=== PATIENT | male | born 1970 | race Caucasian/White ===

== ENCOUNTER 2024-06-21 04:32 | Inpatient (IN) | payer MEDICAID ==
[2024-06-21] VITALS (10 sets, daily range): BP systolic 117–135; BP diastolic 55–79; PULSE 82–98; RESP 15–20; TEMP 98.1; O2SAT 95–98
[~2024-06-21] VITALS: Ht 190.5 cm; Wt 195.6 kg
--- NOTE | 2024-06-21 05:10 | ED.PDOC ---
History of Present Illness HPI Comments 54-year-old male who came to ER for chest pains. Patient is morbidly obese, does have history of alcoholic liver cirrhosis status post abdominal paracentesis. Patient claims that he has already sober. For the past 3 days, patient has been having left-sided chest pressure associated with shortness of breath especially with exertion. Noted worsening abdominal distention and bilateral lower extremity swelling. Patient states that he takes a water pill, but denies ever being diagnosed with congestive heart failure. Persistence of chest pains and shortness of breath patient to come to the ER. Chief Complaint: Chest Pain Time Seen by MD: 05:09 Reviewed Notes: Nurses Notes Allergies: Coded Allergies: NO KNOWN ALLERGIES (Unverified , 07/15/15) Information Source: Patient Mode of Arrival: Ambulatory Severity: Moderate Timing: Days Duration: Since onset Prehospital treatment: None Past Medical History PAST MEDICAL HISTORY: Liver Past Medical History (Other): Morbid obesity Surgical History: Denies all surgeries Family History Family History: Reviewed,noncontributory to illness Social History Smoker: Non-Smoker Alcohol: Sober Drugs: Denies Drug Use Lives In: Home Constitutional: reports: weakness; denies: chills, diaphoresis, fatigue, fever, malaise, sweats, others EENTM: denies: blurred vision, double vision, ear bleeding, ear discharge, ear drainage, ear pain, ear ringing, eye pain, eye redness, hearing loss, mouth pain, mouth swelling, nasal discharge, nose bleeding, nose congestion, nose pain, photophobia, tearing, throat pain, throat swelling, voice changes, others Respiratory: reports: orthopnea, SOB at rest, shortness of breath, SOB with excertion; denies: cough, hemoptysis, stridor, wheezing, others Cardiovascular: reports: chest pain, dizzy spells, edema; denies: diaphoresis, Dyspnea on exertion, irregular heart beat, left arm pain, lightheadedness, palpitations, PND, syncope, others Gastrointestinal: reports: abdomen distended; denies: abdominal pain, blood streaked bowels, constipated, diarrhea, dysphagia, difficulty swallowing, hematemesis, melena, nausea, poor appetite, poor fluid intake, rectal bleeding, rectal pain, vomiting, others Genitourinary: denies: burning, dysuria, flank pain, frequency, hematuria, incontinence, penile discharge, penile sore, pain, testicle pain, testicle swelling, urgency, others Neurological: denies: dizziness, fainting, headache, left sided numbness, left sided weakness, numbness, paresthesia, pre-existing deficit, right sided numbness, right sided weakness, seizure, speech problems, tingling, tremors, weakness, others Musculoskeletal: denies: back pain, gout, joint pain, joint swelling, muscle pain, muscle stiffness, neck pain, others Integumetry: denies: bruises, change in color, change in hair/nails, dryness, laceration, lesions, lumps, rash, wounds, others Allergic/Immunocompromised: denies: Difficulty Healing, Frequent Infections, Hives, Itching, others Hematologic/Lymphatic: denies: anemia, blood clots, easy bleeding, easy bruising, swollen glands, others Endocrine: denies: excessive hunger, excessive sweating, excessive thirst, excessive urination, flushing, intolerance to cold, intolerance to heat, unexplained weight gain, unexplained weight loss, others Psychiatric: denies: anxiety, bipolar disorder, depression, hopeless, panic disorder, schizophrenia, sleepless, suicidal, others Physical Exam General Appearance: No Apparent Distress, Normal HEENT: Normal ENT Inspection, Pharynx Normal, TMs Normal Neck: Full Range of Motion, Non-Tender, Normal, Normal Inspection Respiratory: Chest Non-Tender, Lungs Clear, No Accessory Muscle Use, No Respiratory Distress, Normal Breath Sounds Cardiovascular: No Edema, No JVD, No Murmur, No Gallop, Normal Peripheral Pulses, Regular Rate/Rhythm Breast Exam: Deferred Gastrointestinal: No Organomegaly, Non Tender, No Pulsatile Mass, Normal Bowel Sounds, Soft Genitalia: Deferred Pelvic: Deferred Rectal: Deferred Extremities: No calf tenderness, Normal capillary refill, Normal inspection, Normal range of motion, Non-tender, No pedal edema Musculoskeletal : Apperance: Normal Neurologic: Alert, teamsite developer II-XII nml as Tested, No Motor Deficits, Normal Affect, Normal Mood, No Sensory Deficits Cerebellar Function: Normal Reflexes: Normal Skin: Dry, Normal Color, Warm Lymphatic: No Adenopathy Was a procedure done? Was a procedure done?: No Differential Dx Considerations may include: Anemia, electrolyte imbalance, morbid obesity, congestive heart failure, liver cirrhosis, pneumonia, sepsis, ascites X-Ray, Labs, Meds, VS Vital Signs Date Time Temp Pulse Resp B/P (MAP) Pulse Ox O2 Delivery O2 Flow Rate FiO2 06/21/24 05:23 89 17 137/69 06/21/24 05:11 92 06/21/24 05:00 88 17 137/69 (91) 94 06/21/24 04:43 98.9 99 22 142/72 (95) 98 06/21/24 04:37 99 Lab Test 06/21/24 04:59 06/21/24 04:44 Range/Units White Blood Count 5.2 4.4-10.8 10^3/uL Red Blood Count 2.43 L 4.5-5.90 10^6/uL Hemoglobin 9.7 L 13.5-17.5 g/dL Hematocrit 27.0 L 41.0-53.0 % Mean Corpuscular Volume 111.2 H 80.0-100.0 fL Mean Corpuscular Hemoglobin 39.8 H 28.0-32.0 pg Mean Corpuscular Hemoglobin Concent 35.8 32.0-36.0 g/dL Red Cell Distribution Width 16.9 H 11.8-14.3 % Platelet Count 100 L 140-450 10^3/uL Mean Platelet Volume 6.2 L 6.9-10.8 fL Neutrophils (%) (Auto) 73.3 37.0-80.0 % Lymphocytes (%) (Auto) 10.0 10.0-50.0 % Monocytes (%) (Auto) 11.6 0.0-12.0 % Eosinophils (%) (Auto) 4.0 0.0-7.0 % Basophils (%) (Auto) 1.1 0.0-2.0 % Neutrophils # (Auto) 3.8 1.6-8.6 10 ^3/uL Lymphocytes # (Auto) 0.5 0.4-5.4 10 ^3/uL Monocytes # (Auto) 0.6 0-1.3 10 ^3/uL Eosinophils # (Auto) 0.2 0-0.8 10 ^3/uL Basophils # (Auto) 0.1 0-0.2 10 ^3/uL Nucleated Red Blood Cells 0.1 % Platelet Estimate Pending Prothrombin Time 16.2 H 9.3-11.8 sec Prothrombin Time INR 1.58 H 0.9-1.15 Activated Partial Thromboplast Time 30.8 24.5-34.5 SEC Sodium Level Pending Potassium Level Pending Chloride Level Pending Carbon Dioxide Level Pending Anion Gap Pending Blood Urea Nitrogen Pending Creatinine Pending Glomerular Filtration Rate Calc Pending BUN/Creatinine Ratio Pending Serum Glucose Pending Calcium Level Pending Total Bilirubin Pending Aspartate Amino Transferase (AST) Pending Alanine Aminotransferase (ALT) Pending Alkaline Phosphatase Pending Troponin I High Sensitivity Pending B-Type Natriuretic Peptide Pending Total Protein Pending Albumin Pending POC Glucose 93 70-106 mg/dl Current Medications Medications (Trade) Dose Ordered Sig/Jonatan Route Start Time Stop Time Status Last Admin Morphine Sulfate 4 mg ONCE ONCE IV 06/21/24 05:00 06/21/24 05:01 DC 06/21/24 05:23 Ondansetron HCl (Zofran) 4 mg ONCE ONCE IV 06/21/24 05:00 06/21/24 05:01 DC 06/21/24 05:23 Aspirin 81 mg ONCE ONCE PO 06/21/24 05:00 06/21/24 05:01 DC 06/21/24 05:21 Time of 1ST Reevaluation: 05:04 Reevaluation 1ST: Unchanged Time of 2ND Reevaluation: 05:33 Reevaluation 2ND: Unchanged (h/o EToh cirrhosis, now with concerning chest pain, will admit for supportive care and further workup) Patient Education/Counseling: Diagnosis, Treatment Family Education/Counseling: No Family Present Departure 1 Departure Time of Disposition: 05:34 Impression: Primary Impression: Ascites Additional Impressions: Alcoholic cirrhosis of liver with ascites Acute coronary syndrome Disposition: ADMITTED INPATIENT Admit to: Tele Condition: Guarded Critical Care Note Critical Care Time?: Yes (35 min-critical care time only) Critical care comment: Total critical care time: Approximately 36 minutes Due to a high probability of clinically significant, life threatening deterioration, the patient required my highest level of preparedness to intervene emergently and I personally spent this critical care time directly and personally managing the patient. This critical care time included obtaining a history; examining the patient; pulse oximetry; ordering and review of studies; arranging urgent treatment with development of a management plan; evaluation of patient's response to treatment; frequent reassessment; and, discussions with other providers. Stability Stability form required: No Heart Score Heart Score: Heart Score Response (Comments) Value History Moderate Suspicious 1 EKG Repolarization Disturb 1 Age 45-64 1 Risk Factors >3 or Hx ASHD 2 Troponin Normal limit 0 Total 5 I personally scribed for ALEXANDIRA GALEAS MD ([email or web address]) on 06/21/24 at 05:09. Electronically submitted by Joe Fuentes ([email or web address]). ALEXANDRIA GALEAS MD Jun 21, 2024 05:09
[2024-06-21 05:13] LABS: Eosinophils # (auto) 0.2 10 ^3/uL (0-0.8); Lymphocytes # (auto) 0.5 10 ^3/uL (0.4-5.4); Monocytes # (auto) 0.6 10 ^3/uL (0-1.3); Nucleated Red Blood Cells % 0.1 %; White Blood Cell 5.2 10^3/uL (4.4-10.8)
[2024-06-21 05:15] LABS: Basophils # (auto) 0.1 10 ^3/uL (0-0.2); Basophils % (auto) 1.1 % (0.0-2.0); Hemoglobin 9.7 g/dL (13.5-17.5); Mean Corpuscular Hemoglobin 39.8 pg (28.0-32.0); Mean Corpuscular Hgb Conc. 35.8 g/dL (32.0-36.0); Mean Corpuscular Volume 111.2 fL (80.0-100.0); Monocytes % (auto) 11.6 % (0.0-12.0); Neutrophils # (auto) 3.8 10 ^3/uL (1.6-8.6); Neutrophils % (auto) 73.3 % (37.0-80.0); Platelet Count (auto) 100 10^3/uL (140-450); Red Blood Cells 2.43 10^6/uL (4.5-5.90); Red Cell Distribution Width 16.9 % (11.8-14.3)
[2024-06-21] MEDS: ASPirin 81 mg TAB PO ONE (05:21)
[2024-06-21] MEDS: MORPHINE SULFATE 4 MG/ML SYR/VIAL IV ONE (05:23)
[2024-06-21] MEDS: ONDANSETRON HCL 4 MG/2 ML VIAL IV ONE (05:23)
[2024-06-21 05:29] LABS: INR 1.58 (0.9-1.15); Partial Thromboplastin Time 30.8 SEC (24.5-34.5); Prothrombin Time 16.2 sec (9.3-11.8)
--- NOTE | 2024-06-21 05:30 | DVH ---
CHEST RADIOGRAPH Indication: chest pain Technique: Single frontal view of the chest was obtained Comparison: None IMPRESSION: There are low lung volumes. Elevation of the left hemidiaphragm. Small to moderate right pleural eff usion with moderate pulmonary vascular congestion. Airspace opacity in the right lower lung may repr esent atelectasis or pneumonia. No pneumothorax.
[2024-06-21 05:38] LABS: Anion Gap 10 (5-15); Blood Urea Nitrogen 21 mg/dL (9-23); Carbon Dioxide 21 mmol/L (20-31); Chloride 104 mmol/L (98-107); Glucose 94 mg/dL (74-106); Potassium 3.5 mmol/L (3.5-5.1); Total Protein 5.9 g/dL (5.7-8.2)
[2024-06-21 05:46] LABS: BUN/Creatinine Ratio 17.1 (10.0-20.0)
[2024-06-21 05:51] LABS: Platelet Estimate Decreased
[2024-06-21 05:52] LABS: Macrocytosis Moderate
[2024-06-21 05:56] LABS: Alanine Aminotransferase 41 U/L (7-40); Albumin 2.9 g/dL (3.2-4.8); Alkaline Phosphatase 134 U/L (46-116); Aspartate Aminotransferase 67 U/L (13-40); Calcium 8.5 mg/dL (8.7-10.4); Sodium 135 mmol/L (136-145)
[2024-06-21] MEDS ORDERED: IBUPROFEN 600 MG TAB PO PRN (07:00)
[2024-06-21] MEDS ORDERED: HYDROcodone-ACET 5/325MG TAB PO PRN (07:00)
[2024-06-21] MEDS ORDERED: ONDANSETRON HCL 4 MG/2 ML VIAL IV PRN (07:00)
[2024-06-21] MEDS ORDERED: hydrALAZINE HCL 20 MG/ML VL IV PRN (07:00)
[2024-06-21] MEDS ORDERED: NITROGLYCERIN 0.4 MG SL TAB SL PRN (08:00)
[2024-06-21] MEDS ORDERED: MORPHINE SULFATE INJ 2 MG/ml SYRG IV PRN (08:00)
[2024-06-21] MEDS ORDERED: ALBUTEROL SULF 2.5 MG/0.5ML(0.5%) NEB SOLN NEB PRN (08:15)
[2024-06-21] MEDS ORDERED: IPRATROPIUM BROM 0.5 MG/2.5ML INH SOL NEB PRN (08:15)
--- NOTE | 2024-06-21 08:17 | DVHHP2 ---
History of Present Illness Reason for Visit: Ascites History of Present Illness The patient is a 54-year-old male morbidly obese with past medical history of alcoholic liver cirrhosis status post abdominal paracentesis, presented to [facility] ED with complaint of chest pain. Patient reports for the past 3 days he has been having left-sided chest pressure associated with shortness of breaths with exertion, abdominal distention, bilateral lower extremity swelling, getting worse today that prompted this visit. Patient states he had paracentesis at [facility] about a month ago. Patient was seen and evaluated in the ED, laboratory data shows WBC 5.2, hemoglobin 9.7, hematoc rit 27.0, platelets 100, sodium 135, potassium 3.5, BUN 21, creatinine 1.23, glucose 94, BNP 93.81, calcium 8.5, total bilirubin 15.0, AST 67, ALT 41, troponin 10, albumin 2.9. Chest x-ray revealing small to moderate right pleural effusion with moderate pulmonary vascular congestion; airspace opacity in the right lower lung may represent atelectasis or pneumonia, no pneumothorax. Patient was given breathing treatment, started on IV antibiotic regimen azithromycin, please see medication orders section in the computer. On my assessment, patient denies chest pain, no headache, no dizziness, no diaphoresis, no abdominal pain, no diarrhea, no nausea, no vomiting, no fever, no chills. Patient was admitted for further evaluation and medical management. Past Medical History Alcoholic liver cirrhosis, Morbid obesity Past Surgical History Paracentesis Family History Reviewed, noncontributory to the management of this case. Past Social History Patient lives at home, sober alcohol, denies smoking or illicit drugs abuse. Review of Systems Constitutional: Yes: Weakness; No: Fever, Chills, Sweats, Malaise, Other Eyes: No: Pain, Vision change, Conjunctivae inflammation, Eyelid inflammation, Other, Redness ENT: No: Ear pain, Ear discharge, Nose pain, Nose discharge, Nose congestion, Mouth pain, Mouth swelling, Throat pain, Throat swelling, Other Respiratory: Shortness of breath, SOB with excertion, Other (SOB at rest); No: Cough, Dry, Wheezing, Hemoptysis, Pleuritic Pain, Sputum, Wheezing Cardiovascular: Chest Pain, Orthopnea, Edema, Other (Dizzy spells); No: Palpit ations, Paroxysmal Noc. Dyspnea, Lt Headedness Gastrointestinal: Other (Distended abdomen); No: Nausea, Vomiting, Abdominal Pain, Diarrhea, Constipation, Melena, Hematochezia Genitourinary: No Dysuria, No Frequency, No Incontinence, No Hematuria, No Retention, No Other Musculoskeletal: No: other, neck pain, shoulder pain, arm pain, back pain, hand pain, leg pain, foot pain Skin: No: Rash, Lesions, Jaundice, Bruising, Other Neurological: No: Weakness, Numbness, Incoordination, Change in speech, Confusion, Seizures, Other Allergies: Coded Allergies: NO KNOWN ALLERGIES (Unverified , 07/15/15) Medications Current Medications Medications Dose Ordered Sig/Jonatan Route Start Time Stop Time Status Last Admin Dose Admin Ibuprofen 600 mg Q6HP PRN PO 06/21/24 07:00 Levothyroxine Sodium 75 mcg QAM@0600 PO 06/22/24 06:00 Azithromycin 250 ml @ 125 mls/hr DAILY IV 06/22/24 10:00 Famotidine 20 mg DAILY IV 06/21/24 10:00 Hydralazine HCl 10 mg Q6HP PRN IV 06/21/24 07:00 Lactulose 30 ml BID PO 06/21/24 10:00 Sodium Chloride 10 ml Q8HR IV 06/21/24 14:00 Acetaminophen/ Hydrocodone Bitart 1 tab Q4HP PRN PO 06/21/24 07:00 Ondansetron HCl 4 mg Q4HP PRN IV 06/21/24 07:00 Tamsulosin HCl 0.4 mg QPM PO 06/21/24 18:00 Spironolactone 100 mg DAILY PO 06/21/24 07:45 UNV Hydromorphone HCl 1 mg Q4HPRN PRN IV 06/21/24 08:00 UNV Exam Vital Signs Vital Signs Date Time Temp Pulse Resp B/P (MAP) Pulse Ox O2 Delivery O2 Flow Rate FiO2 06/21/24 05:53 89 14 137/69 06/21/24 05:39 97 Room Air* 0 21 06/21/24 04:43 98.9 General Appearance: Alert, Oriented X3, Cooperative, No acute distress HEENT: Atraumatic, PERRLA, EOMI, Mucous membr. moist/pink Respiratory: Normal air movement, Other (Diminished breath sounds) Cardiovascular: Regular rate, Normal S1, Normal S2, No murmurs Abdominal: Normal bowel sounds, Soft, No tenderness, No hepatospenomegaly, No masses, Other (Distended abdomen) Extremities: No clubbing, No cyanosis, No edema, Normal pulses, No tenderness/swelling Skin: No rashes, No breakdown, No significant lesion Neuro: Normal speech, Normal tone, Sensation intact, Cranial nerves 3-12 NL, Reflexes 2+, Other (Generalized weakness) Psych/Mental Status: Mental status NL, Mood NL Labs/Xrays Labs Test 06/21/24 05:52 06/21/24 04:59 06/21/24 04:44 Range/Units Troponin I High Sensitivity 10 </=54 ng/L White Blood Count 5.2 4.4-10.8 10^3/uL Red Blood Count 2.43 L 4.5-5.90 10^6/uL Hemoglobin 9.7 L 13.5-17.5 g/dL Hematocrit 27.0 L 41.0-53.0 % Mean Corpuscular Volume 111.2 H 80.0-100.0 fL Mean Corpuscular Hemoglobin 39.8 H 28.0-32.0 pg Mean Corpuscular Hemoglobin Concent 35.8 32.0-36.0 g/dL Red Cell Distribution Width 16.9 H 11.8-14.3 % Platelet Count 100 L 140-450 10^3/uL Mean Platelet Volume 6.2 L 6.9-10.8 fL Neutrophils (%) (Auto) 73.3 37.0-80.0 % Lymphocytes (%) (Auto) 10.0 10.0-50.0 % Monocytes (%) (Auto) 11.6 0.0-12.0 % Eosinophils (%) (Auto) 4.0 0.0-7.0 % Basophils (%) (Auto) 1.1 0.0-2.0 % Neutrophils # (Auto) 3.8 1.6-8.6 10 ^3/uL Lymphocytes # (Auto) 0.5 0.4-5.4 10 ^3/uL Monocytes # (Auto) 0.6 0-1.3 10 ^3/uL Eosinophils # (Auto) 0.2 0-0.8 10 ^3/uL Basophils # (Auto) 0.1 0-0.2 10 ^3/uL Nucleated Red Blood Cells 0.1 % Platelet Estimate Decreased Macrocytosis Moderate Prothrombin Time 16.2 H 9.3-11.8 sec Prothrombin Time INR 1.58 H 0.9-1.15 Activated Partial Thromboplast Time 30.8 24.5-34.5 SEC Sodium Level 135 L 136-145 mmol/L Potassium Level 3.5 3.5-5.1 mmol/L Chloride Level 104 98-107 mmol/L Carbon Dioxide Level 21 20-31 mmol/L Anion Gap 10 5-15 Blood Urea Nitrogen 21 9-23 mg/dL Creatinine 1.23 0.700-1.30 mg/dL Glomerular Filtration Rate Calc 70 >90 mL/min BUN/Creatinine Ratio 17.1 10.0-20.0 Serum Glucose 94 74-106 mg/dL Calcium Level 8.5 L 8.7-10.4 mg/dL Total Bilirubin 15.0 H 0.2-1.0 mg/dL Aspartate Amino Transferase (AST) 67 H 13-40 U/L Alanine Aminotransferase (ALT) 41 H 7-40 U/L Alkaline Phosphatase 134 H 46-116 U/L B-Type Natriuretic Peptide 93.81 0-100 pg/mL Total Protein 5.9 5.7-8.2 g/dL Albumin 2.9 L 3.2-4.8 g/dL POC Glucose 93 70-106 mg/dl PATIENT: ANA FLAHERTY ACCT: [id number] UNIT: [id number] : 1970 LOC: ER ROOM / BED: / AGE / SEX: 54 / M ADM STATUS: REG ER SERVICE [id number] ORDERING PHYSICIAN: ALEXANDRIA GALEAS MD PROCEDURE(s): CXRP - CHEST PORTABLE REASON: chest pain ORDER NUMBER(s): [id number], ACCESSION NUMBER(s): [id number] CHEST RADIOGRAPH Indication: chest pain Technique: Single frontal view of the chest was obtained Comparison: None IMPRESSION: There are low lung volumes. Elevation of the left hemidiaphragm. Small to moderate right pleural effusion with moderate pulmonary vascular congestion. Airspace opacity in the right lower lung may represent atelectasis or pneumonia. No pneumothorax. Assessment/Plan Assessment/Plan Ascites Elevated liver enzymes Alcoholic cirrhosis of liver with ascites Morbid obesity Acute coronary syndrome Electrolyte imbalance Anemia of chronic disease Pneumonia, unspecified organisms Plan 1. Admit to telemetry unit 2. Breathing treatment 3. Pain control management 4. IV antibiotic management 5. Management of fluids and electrolytes 6. Consultation for hospitalist/GI 7. Diagnostic test chest x-ray 8. DVT prophylaxis on SCDs 9. Repeat labs CBC, CMP in a.m. 10. Home medication reviewed and reconciled 11. Continue with current medical management 12. Treatment plan discussed with patient and RN. Patient verbalized dhaval melendez. Plan discussed with: Patient, Other (RN) My Orders Orders - MARIYA JARRETT DNP Procedure Category Date Status Time * Gi Dvh Circular Head Saw Operator CONS 06/21/24 Transmitted 06:56 Complete Blood Count LAB 06/21/24 Logged 06:56 Comprehensive LAB 06/21/24 Logged Metabolic Panel 06:56 Ibuprofen Tablet PHA 06/21/24 In Process (Motrin Tablet) 07:00 Levothyroxine Tablet PHA 06/22/24 In Process (Synthroid Tablet) 06:00 Thyroid Stimulating LAB 06/21/24 In Process Hormone 06:56 Azithromycin 500mg/ PHA 06/21/24 In Process 250ml (Zithromax 50 07:00 Type And Screen BBK 06/21/24 Logged 06:56 Famotidine Injection PHA 06/21/24 In Process (Pepcid Injection) 10:00 Hydralazine Injection PHA 06/21/24 In Process (Apresoline Inject 07:00 Lactulose Oral PHA 06/21/24 In Process 10:00 Allergies XAVIER 06/21/24 In Process 06:56 Code Status CODE 06/21/24 Transmitted 06:56 Sodium Chloride Lock PHA 06/21/24 In Process (Saline Lock Ns) 14:00 Oxygen Per Hour RT 06/21/24 Transmitted 06:56 Hydrocodone-Acet PHA 06/21/24 In Process 5/325mg Tab ([place] 07:00 Ondansetron Hcl PHA 06/21/24 In Process (Zofran) 07:00 Complete Blood Count LAB 06/22/24 Verified 04:00 Comprehensive LAB 06/22/24 Verified Metabolic Panel 04:00 Cardiac DIET 06/21/24 Transmitted Diet-2gna,Lofat,Lochol Breakfast Condition: Serious XAVIER 06/21/24 In Process 06:56 Bedrest With Bathroom XAVIER 06/21/24 In Process Privileg 06:56 Sequential XAVIER 06/21/24 In Process Compression Device Tamsulosin [facility] 06/21/24 In Process Hydrochloride (Flomax) 18:00 Azithromycin 500mg/ PHA 06/22/24 In Process 250ml (Zithromax 50 10:00 Paracentesis US 06/21/24 Logged 07:43 Ammonia LAB 06/21/24 Logged 07:44 Spironolactone PHA 06/21/24 Logged (Aldactone) 07:45 Hydromorphone [facility] 06/21/24 Logged Injection (Dilaudid 08:00 Admit ADMIT 06/21/24 Verified 07:52 Nitroglycerin [facility] 06/21/24 Verified Sublingual (Ntrostat 08:00 Morphine Sulfate [facility] 06/21/24 Verified Injection 08:00 Notify Of Changes [facility] 06/21/24 Verified From Base 07:52 Title Specialist For [facility] 06/21/24 Verified 24 Hours 07:52 Emergency Dysrhythmia [facility] 06/21/24 Verified Protocol 07:52 Rhythm Strips Once [facility] 06/21/24 Verified Every Shift 07:52 Oxygen By Nasal RT 06/21/24 Verified Cannula 07:52 Problem List: (1) Ascites (2) Elevated liver enzymes (3) Pneumonia, unspecified organism (4) Morbid obesity (5) Anemia of chronic disease (6) Electrolyte imbalance (7) Acute coronary syndrome (8) Alcoholic cirrhosis of liver with ascites Date of Service: Jun 21, 2024 Billing Provider: MARIYA JARRETT DNP Common Visit Codes: [id number] INP/OBS CARE (HIGH) MARIYA JARRETT DNP Jun 21, 2024 08:17
[2024-06-21 08:56] LABS: Anion Gap 8 (5-15); Blood Urea Nitrogen 22 mg/dL (9-23); Calcium 8.7 mg/dL (8.7-10.4); Carbon Dioxide 23 mmol/L (20-31); Chloride 103 mmol/L (98-107); Glucose 92 mg/dL (74-106); Potassium 3.8 mmol/L (3.5-5.1); Total Protein 5.9 g/dL (5.7-8.2)
[2024-06-21 09:07] LABS: Alanine Aminotransferase 41 U/L (7-40); Albumin 2.7 g/dL (3.2-4.8); Alkaline Phosphatase 125 U/L (46-116); Aspartate Aminotransferase 68 U/L (13-40); Bilirubin, Total 15.3 mg/dL (0.2-1.0); Sodium 134 mmol/L (136-145)
[2024-06-21] MEDS: SPIRONOLACTONE 25 MG TAB PO SCH (09:09)
[2024-06-21] MEDS: AZITHROMYCIN 500MG/ 250ML 250 ML IV ONE (09:09)
[2024-06-21] MEDS: LACTULOSE 20Gm/30ML SOLN PO SCH (09:09)
[2024-06-21 09:10] LABS: BUN/Creatinine Ratio 17.3 (10.0-20.0)
[2024-06-21] MEDS: SODIUM CHLOR 0.9% PF (SALINE LOCK) 10ML VIAL/SYR IV SCH (09:10)
[2024-06-21] MEDS: FAMOTIDINE (10MG/ML) 2ML VL IV SCH (09:10)
--- NOTE | 2024-06-21 09:31 | DVH ---
INDICATION: EVAL ASCITES TECHNIQUE: Multiple real-time sonographic images of the abdomen were obtained. COMPARISON: None FINDINGS: Small volume ascites seen in all 4 quadrants. IMPRESSION: 1. Ascites in all 4 quadrants.
[2024-06-21] MEDS ORDERED: SPIRONOLACTONE 25 MG TAB PO SCH (10:00)
[2024-06-21] MEDS ORDERED: SPIR100T4 PO (11:28)
[2024-06-21] MEDS ORDERED: FURO40TA4 PO (11:28)
[2024-06-21] MEDS: HYDROmorphone HCL 2 MG/ML VL/or syr IV PRN (15:35)
[2024-06-21] MEDS: TAMSULOSIN HYDROCHLORIDE 0.4 MG CAP PO SCH (17:33)
--- NOTE | 2024-06-21 18:00 | DVHINCON2 ---
GI Consult Consult Note Date of Consultation: 06/21/2024 Chief Complaint: Ascites and shortness of breath Referring Physician:Rosanna History of present illness : Patient is a 54-year-old male with a history of alcoholic cirrhosis, hypothyroidism, BPH, with decompensations including thrombocytopenia and ascites, admitted with complaints of shortness of breath and ascites, recent paracentesis, on diuretics and [facility]. Patient has significant lower extremity edema to the knees bilaterally. Patient denies any recent EtOH abuse. States that his last alcohol was more than seven months ago. Patient denies any fevers or chills. He has significant shortness of breath with any exertion. Patient denies any change in diet. Patient states that he needs to go home to take care of his four dogs. Patient denies any cardiac or pulmonary history. Patient was found to have pleural effusion on imaging. Imaging of the abdomen shows small amount of ascites in all four quadrants. Past Medical History: As above Past Surgical History: Denies Current Medications Medications (Trade) Dose Ordered Sig/Jonatan Route Start Time Stop Time Status Last Admin Dose Admin Ibuprofen (Motrin Tablet) 600 mg Q6HP PRN PO 06/21/24 07:00 Levothyroxine Sodium (Synthroid Tablet) 75 mcg QAM@0600 PO 06/22/24 06:00 Azithromycin 250 ml @ 125 mls/hr DAILY IV 06/22/24 10:00 Famotidine (Pepcid Injection) 20 mg DAILY IV 06/21/24 10:00 06/21/24 09:10 20 MG Hydralazine HCl (Apresoline Injection) 10 mg Q6HP PRN IV 06/21/24 07:00 Lactulose 30 ml BID PO 06/21/24 10:00 06/21/24 09:09 30 ML Sodium Chloride (Saline Lock Ns) 10 ml Q8HR IV 06/21/24 14:00 06/21/24 09:10 10 ML Acetaminophen/ Hydrocodone Bitart ([place] 5/325MG Tab) 1 tab Q4HP PRN PO 06/21/24 07:00 Ondansetron HCl (Zofran) 4 mg Q4HP PRN IV 06/21/24 07:00 Tamsulosin HCl (Flomax) 0.4 mg QPM PO 06/21/24 18:00 06/21/24 17:33 0.4 MG Hydromorphone HCl (Dilaudid Injection) 1 mg Q4HPRN PRN IV 06/21/24 08:00 06/21/24 15:35 1 MG Nitroglycerin (Ntrostat Sublingual) 0.4 mg Q5MINP PRN SL 06/21/24 08:00 Morphine Sulfate 2 mg Q30M PRN IV 06/21/24 08:00 Spironolactone (Aldactone) 100 mg DAILY PO 06/22/24 10:00 Social History: History of alcohol abuse, no drugs or tobacco use Family History: No gastrointestinal or liver diseases or malignancies Review of Systems: Constitutional: Has had weight gain no fevers or chills HEENT: No visual changes or hearing loss Heart: No chest pain, palpitations, Lung: Shortness of breath no cough or wheeze Abdomen: see HPI : n no dysuria or hematuria, BPH Musculoskeletal: No fractures, arthralgias or myalgias Neurological: no seizure, or stroke Pysch: no depression, no anxiety Endocrine: No diabetes but has hypothyroid Heme: Anemia but no history of malignancy Derm: no rash, no jaundice Objective: Vital Signs Date Time Temp Pulse Resp B/P (MAP) Pulse Ox O2 Delivery O2 Flow Rate FiO2 06/21/24 17:00 98.1 95 18 135/79 (97) 95 98.1 06/21/24 10:50 Room Air* 0 21 Physical exam: General: NAD, AAOX3 HEENT: PERRL icterus is present normal Neck: Supple no lymphadenopathy Heart: RRR Abdomen: Morbidly obese and distended Extremities: Edema to the knees bilaterally Neurological: CN II-XII intact, sensation intact in all extremities, 5+ strength in all extremities, no asterixis Skin: Chronic skin changes lower extremity Labs: Hemoglobin 9.7 Platelets 100 k INR 1.58 Bilirubin 15 Imaging: Essential small volume of ascites in all four quadrant Impression: Cirrhosis Ascites Hyperbilirubinemia Transaminitis Coagulopathy Edema History of alcohol abuse Anemia and thrombocytopenia Patient's symptoms may be secondary to cirrhosis versus right-sided heart failure. Recommend cardiac workup. Recommendations: 1. Follow labs 2. Paracentesis when available 3. Continue diuretics 4. Cardiac workup 5. Continue avoid EtOH 6. Low-salt diet, avoid raw seafood, less than 2 L fluid intake Check hepatitis vaccination status and vaccinate for hepatitis a and B 7. Mediterranean diet for weight loss 8. I will follow Plan: - Pt will be scheduled for an EGD and colonoscopy. Pt was informed of the risks (bleeding, infection, perforation, reaction to sedation medications and cardiopulmonary arrest) and benefit and is agreeable to undergo the procedures. Date of Service: Jun 21, 2024 Billing Provider: ADINA GARCIA MD Common Visit Codes: 50616-DMIMEST INP/OBS CARE (HIGH) Consultation Codes: 44736-OPHLWYYAS CONSULT <60MIN ADINA GARCIA MD Jun 21, 2024 18:00
--- NOTE | 2024-06-21 20:47 | DVHNC2 ---
Procedure - Paracentesis Procedure Note Paracentesis Procedure Note INDICATION: Ascites PROCEDURE PLUMBER ASSISTANT: Dr Kurtis Arredondo Ultrasound used to nereida location: Yes CONSENT: Consent was obtained from patient prior to the procedure. Indications, risks, and benefits were explained at length. Time out time: 2000 Patient medications and allergies reviewed. The risks and benefits of the procedure and the sedation options and risk were discussed with the patient's healthcare proxy. All questions were answered and informed consent was obtained. Patient identification and proposed procedure were verified prior to the procedure by the physician, and a nurse in the patient's room. The heart rate, respiratory rate, oxygen saturations, blood pressure, adequacy of pulmonary ventilation, and response to care were monitored throughout the procedure. The physical status of the patient was reassessed after the procedure. PROCEDURE SUMMARY: A time-out was performed. My hands were washed immediately prior to the procedure. I wore a surgical cap, mask with protective eyewear, sterile gown and sterile gloves throughout the procedure. The area was cleansed and draped in usual sterile fashion using chlorhexidine scrub. Anesthesia was achieved with 1% lidocaine. The right lower quadrant of the abdomen was prepped and draped in a sterile fashion using chlorhexidine scrub. 1% lidocaine was used to numb the skin, soft tissue and peritoneum. The paracentesis catheter was inserted and advanced with negative pressure until _ colored fluid was aspirated. Approximately 60 mL of ascitic fluid was collected and sent for laboratory analysis. The catheter was then connected to the vaccutainer and 3.6 liters of additional ascitic fluid were drained. The catheter was removed and no leaking was noted. A band aid was placed over the puncture wound. The patient tolerated the procedure well without any immediate complications. Estimated blood loss was less than 5 mL. CPT 98914 KURTIS ARREDONDO MD Jun 21, 2024 20:47
--- NOTE | 2024-06-21 20:48 | DVHINCON2 ---
Date of service: Jun 21, 2024 Referring Physician GREG Marte Reason for Consultation Ascites History of Present Illness 54-year-old man history of morbid obesity, alcoholic liver cirrhosis status post paracentesis who presented with a chief complaint of chest pain. He has been having left-sided chest pain for the last three days. He notes shortness of breath with exertion and abdominal distention. He also notes bilateral lower extremity swelling. Pulmonary consultation is called for evaluation of shortness of breath and evaluation for paracentesis given patient's history of ascites. Review of systems: 14 point review of systems is negative unless otherwise noted above. Past medical history: Alcoholic liver cirrhosis, morbid obesity Past surgical history: Paracentesis Medications: Reviewed Allergies: No known drug allergies. Family history: No family history of premature CAD. No family history of lung disease. Social history: Sober alcohol. Denies smoking or illicit drug use. Lives at home. Family History: FH: breast cancer G8 MOTHER FH: heart attack G8 MOTHER Allergies: Coded Allergies: NO KNOWN ALLERGIES (Unverified , 07/15/15) Home Meds Reported Medications Spironolactone (Spironolactone) 100 Mg Tab, 1 TAB PO DAILY for FOR LIVER 06/21/24 Furosemide (Furosemide) 40 Mg Tab, 1 TAB PO DAILY for WATER RETENTION 06/21/24 Current Medications Current Medications Medications (Trade) Dose Ordered Sig/Jonatan Route PRN Reason Start Time Stop Time Status Last Admin Ibuprofen (Motrin Tablet) 600 mg Q6HP PRN PO PAIN SCALE 1-3 OR TEMP>100.4 06/21/24 07:00 Spironolactone (Aldactone) 50 mg DAILY PO 06/21/24 10:00 06/21/24 07:47 DC Levothyroxine Sodium (Synthroid Tablet) 75 mcg QAM@0600 PO 06/22/24 06:00 Azithromycin 250 ml @ 125 mls/hr DAILY IV 06/22/24 10:00 Famotidine (Pepcid Injection) 20 mg DAILY IV 06/21/24 10:00 06/21/24 09:10 Hydralazine HCl (Apresoline Injection) 10 mg Q6HP PRN IV SBP>150 06/21/24 07:00 Lactulose 30 ml BID PO 06/21/24 10:00 06/21/24 09:09 Sodium Chloride (Saline Lock Ns) 10 ml Q8HR IV 06/21/24 14:00 06/21/24 09:10 Acetaminophen/ Hydrocodone Bitart ([place] 5/325MG Tab) 1 tab Q4HP PRN PO MODERATE PAIN (4-6 PAIN SCALE) 06/21/24 07:00 Ondansetron HCl (Zofran) 4 mg Q4HP PRN IV NAUSEA / VOMITING 06/21/24 07:00 Tamsulosin HCl (Flomax) 0.4 mg QPM PO 06/21/24 18:00 06/21/24 17:33 Spironolactone (Aldactone) 100 mg DAILY PO 06/21/24 07:45 06/21/24 09:13 DC 06/21/24 09:09 Hydromorphone HCl (Dilaudid Injection) 1 mg Q4HPRN PRN IV SEVERE PAIN (7-10 PAIN SCALE) 06/21/24 08:00 06/21/24 15:35 Nitroglycerin (Ntrostat Sublingual) 0.4 mg Q5MINP PRN SL FOR CHEST PAIN 06/21/24 08:00 Morphine Sulfate 2 mg Q30M PRN IV FOR CHEST PAIN 06/21/24 08:00 Albuterol (Ventolin Medneb) 2.5 mg Q4HPRN PRN NEB SHORTNESS OF BREATH 06/21/24 08:15 06/21/24 08:57 DC Ipratropium [place] (Atrovent Medneb) 0.5 mg Q4HPRN PRN NEB SHORTNESS OF BREATH 06/21/24 08:15 06/21/24 08:57 DC Spironolactone (Aldactone) 100 mg DAILY PO 06/22/24 10:00 Furosemide (Lasix Tablet) 40 mg DAILY PO 06/22/24 10:00 Vital Signs Vital Signs Date Time Temp Pulse Resp B/P (MAP) Pulse Ox O2 Delivery O2 Flow Rate FiO2 06/21/24 17:00 98.1 95 18 135/79 (97) 95 98.1 06/21/24 10:50 Room Air* 0 21 Physical Exam Gen.: Patient lying in bed in no apparent distress. On supplemental oxygen. Head: Normocephalic, atraumatic Eyes: EOMI/PERRLA. Ears: Normal hearing. Normal anatomy. Neck/trachea: Trachea midline, supple. Nose: Normal external anatomy. Mouth: Moist mucous membranes. Chest: Decreased air entry bilaterally. No wheezing or rhonchi. Cardio vascular: Positive S1, positive S2. Regular rate and rhythm. Abdomen: Anasarca. Positive bowel sounds in all 4 quadrants. Soft, non- tender, distended. : Deferred. Rectal: Deferred Skin: Warm, dry. Intact. Extremities: 2+ radial pulses bilaterally. 3+ lower extremity edema. Neuro: Awake, alert, oriented x3. No gross motor or sensory deficits. Cranial nerves II through XII intact. Gait not assessed. Labs/Diagnostic Data Labs Test 06/21/24 08:00 06/21/24 05:52 06/21/24 04:59 06/21/24 04:44 Range/Units Sodium Level 134 L 136-145 mmol/L Potassium Level 3.8 3.5-5.1 mmol/L Chloride Level 103 98-107 mmol/L Carbon Dioxide Level 23 20-31 mmol/L Anion Gap 8 5-15 Blood Urea Nitrogen 22 9-23 mg/dL Creatinine 1.27 0.700-1.30 mg/dL Glomerular Filtration Rate Calc 67 >90 mL/min BUN/Creatinine Ratio 17.3 10.0-20.0 Serum Glucose 92 74-106 mg/dL Calcium Level 8.7 8.7-10.4 mg/dL Total Bilirubin 15.3 H 0.2-1.0 mg/dL Aspartate Amino Transferase (AST) 68 H 13-40 U/L Alanine Aminotransferase (ALT) 41 H 7-40 U/L Alkaline Phosphatase 125 H 46-116 U/L Ammonia < 10 L 11-32 umol/L Total Protein 5.9 5.7-8.2 g/dL Albumin 2.7 L 3.2-4.8 g/dL Troponin I High Sensitivity 10 </=54 ng/L Thyroid Stimulating Hormone (TSH) 8.65 H 0.55-4.78 uIU/mL White Blood Count 5.2 4.4-10.8 10^3/uL Red Blood Count 2.43 L 4.5-5.90 10^6/uL Hemoglobin 9.7 L 13.5-17.5 g/dL Hematocrit 27.0 L 41.0-53.0 % Mean Corpuscular Volume 111.2 H 80.0-100.0 fL Mean Corpuscular Hemoglobin 39.8 H 28.0-32.0 pg Mean Corpuscular Hemoglobin Concent 35.8 32.0-36.0 g/dL Red Cell Distribution Width 16.9 H 11.8-14.3 % Platelet Count 100 L 140-450 10^3/uL Mean Platelet Volume 6.2 L 6.9-10.8 fL Neutrophils (%) (Auto) 73.3 37.0-80.0 % Lymphocytes (%) (Auto) 10.0 10.0-50.0 % Monocytes (%) (Auto) 11.6 0.0-12.0 % Eosinophils (%) (Auto) 4.0 0.0-7.0 % Basophils (%) (Auto) 1.1 0.0-2.0 % Neutrophils # (Auto) 3.8 1.6-8.6 10 ^3/uL Lymphocytes # (Auto) 0.5 0.4-5.4 10 ^3/uL Monocytes # (Auto) 0.6 0-1.3 10 ^3/uL Eosinophils # (Auto) 0.2 0-0.8 10 ^3/uL Basophils # (Auto) 0.1 0-0.2 10 ^3/uL Nucleated Red Blood Cells 0.1 % Platelet Estimate Decreased Macrocytosis Moderate Prothrombin Time 16.2 H 9.3-11.8 sec Prothrombin Time INR 1.58 H 0.9-1.15 Activated Partial Thromboplast Time 30.8 24.5-34.5 SEC B-Type Natriuretic Peptide 93.81 0-100 pg/mL POC Glucose 93 70-106 mg/dl Assessment Impression: Shortness of breath Ascites Elevated liver enzymes Alcoholic cirrhosis of the liver with ascites Morbid obesity with a BMI of 54.3 Anemia of chronic disease Pneumonia Likely Gram-negative Atelectasis Plan: Chest x-ray imaging report reviewed. Elevation of the left hemidiaphragm. [id number] right pleural effusion with moderate pulmonary vascular congestion. Drained 3.7 L from the abdominal space. Yellow ascitic fluid. Sent for cultures and cytology. See separate procedure note for full details. On room air Complete antibiotic course. Diuresis euvolemia. Monitor ins and outs. Monitor electrolytes. Supplement as necessary. Monitor renal function. Lactulose twice daily. Titrate to achieve four bowel movements daily. GI prophylaxis-Pepcid DVT prophylaxis-SCDs Condition: Critical Prognosis: Poor given multiple comorbidities. Rest of plan per hospitalist and other consultants. A total of 36 minutes of critical care time was spent reviewing the patient record, examining the patient, making a diagnostic and therapeutic plan, discussing this plan with the medical personnel, following up on diagnostic studies and following the patient for clinical stability excluding any and all procedures. At least 50% of this time was spent in direct, [id number] contact. Thank you GREG Marte for allowing me to participate in this patient's care. Further recommendations will depend on patient's clinical course. Please do not hesitate to contact me if you have any questions or concerns. This medical document was created using an electronic medical record system with [employer] dictation system. Although this document has been carefully reviewed, there may still be some phonetic and typographical errors. These areas are purely typographical due to imperfections of the software programs, and do not reflect any compromise in the patient's medical care. Plan discussed with: Patient, Other (LÓPEZ Staples MD/ACCOUNTING ADVISORY SERVICES MANAGER) KURTIS ALEMAN MD Jun 21, 2024 20:47
[2024-06-21] MEDS: FUROSEMIDE 20 MG/2 ML VIAL IV ONE (21:25)
[2024-06-21 22:41] LABS: Body Fluid Red Blood Cells 173 CUMM (0-2000); Body Fluid White Blood Cells 764 CUMM (0-200)
[2024-06-21 22:42] LABS: Body Fluid Polymorphonuclear 75 % (0-25)
[2024-06-22] MEDS ORDERED: LEVOTHYROXINE SODIUM 25 MCG TAB PO SCH (06:00)
[2024-06-22] MEDS ORDERED: AZITHROMYCIN 500MG/ 250ML 250 ML IV SCH (10:00)
[2024-06-22] MEDS ORDERED: FUROSEMIDE 20 MG TAB PO SCH (10:00)
[2024-06-22] MEDS ORDERED: SPIRONOLACTONE 25 MG TAB PO SCH (10:00)
--- NOTE | 2024-06-24 12:26 | ECG ---
[facility] Test Date: 2024-06-21 Test Time: 04:37:36 Pat Name: ANA FLAHERTY Department: ER Room: 0212T A Gender: M Para Educator: : 1970 Requested By: ALEXANDRIA GALEAS Order Number: [id number] Reading MD: Alejandro Gallo Measurements Intervals [place] Rate: 99 P: 53 WA: 158 QRS: 13 QRSD: 97 T: 89 QT: 353 QTc: 453 Interpretive Statements Sinus rhythm Low voltage, precordial leads Abnormal R-wave progression, early transition Nonspecific T abnormalities, lateral leads Electronically Signed On 06-26-2024 16:06:53 PST by Alejandro Gallo Please click the below link to view image of tracing.
[2024-06-25 13:06] LABS: Protein, Body Fluid 0.8 g/dL (.)
== END 2024-06-21 23:12 | disposition left against medical advice (07) | DRG 280 ==
LOC: ER 04:32 → TELE 07:52 → TELE-CENTR 09:51
PROVIDERS: ADMIT Nurse Practitioner Family; ATTEND Nurse Practitioner Family
PROC: 0W9G3ZZ Drainage of Peritoneal Cavity, Percutaneous Approach (ICD-10-PCS; principal; 2024-06-21)
DX: K70.31 Alcoholic cirrhosis of liver with ascites (principal); J15.69 Pneumonia due to other Gram-negative bacteria; D68.9 Coagulation defect, unspecified; D69.6 Thrombocytopenia, unspecified; I24.9 Acute ischemic heart disease, unspecified; D63.8 Anemia in other chronic diseases classified elsewhere; J90 Pleural effusion, not elsewhere classified; Z68.43 Body mass index [BMI] 50.0-59.9, adult; E66.01 Morbid (severe) obesity due to excess calories; E03.9 Hypothyroidism, unspecified; N40.0 Benign prostatic hyperplasia without lower urinary tract symptoms; F10.10 Alcohol abuse, uncomplicated; Y90.9 Presence of alcohol in blood, level not specified; Z80.3 Family history of malignant neoplasm of breast; Z82.49 Family history of ischemic heart disease and other diseases of the circulatory system; Z79.899 Other long term (current) drug therapy
CPT/HCPCS: 49083; 93005; 96365; 96375; 99291; G0378

== ENCOUNTER 2024-06-28 00:58 | Inpatient (IN) | payer MEDICAID ==
[2024-06-28] VITALS (54 sets, daily range): BP systolic 46–175; BP diastolic 14–106; PULSE 89–106; RESP 13–30; TEMP 97.3–98.4; O2SAT 77–99
[~2024-06-28] VITALS: Ht 188 cm; Wt 191.0 kg
[~2024-06-28 00:58] MED LIST: FURO40TA4 PO; SPIR100T4 PO
[2024-06-28] MEDS: NITROGLYCERIN 0.4 MG SL TAB SL ONE (01:47)
--- NOTE | 2024-06-28 01:47 | DVH ---
CHEST RADIOGRAPH Indication: Shortness of breath Technique: Single frontal view of the chest was obtained COMPARISON: XY CHEST PORTABLE on DOS: 06/21/24 FINDINGS: Lines and Tubes: None Lungs: Moderate interstitial pulmonary edema. Pleura: Trace right effusion. No pneumothorax. Cardiomediastinal contours: Cardiomegaly. Bones: Unremarkable IMPRESSION: 1. Moderate interstitial pulmonary edema. 2. Trace right effusion
[2024-06-28 01:52] LABS: Anion Gap 11 (5-15); Carbon Dioxide 20 mmol/L (20-31); Chloride 100 mmol/L (98-107); Glucose 95 mg/dL (74-106); Potassium 4.1 mmol/L (3.5-5.1)
[2024-06-28 01:53] LABS: Alanine Aminotransferase 85 U/L (7-40); Albumin 2.5 g/dL (3.2-4.8); Alkaline Phosphatase 135 U/L (46-116); Aspartate Aminotransferase 162 U/L (13-40); Basophils # (auto) 0 10 ^3/uL (0-0.2); Basophils % (auto) 0.7 % (0.0-2.0); Bilirubin, Total 16.8 mg/dL (0.2-1.0); Blood Urea Nitrogen 33 mg/dL (9-23); Calcium 8.1 mg/dL (8.7-10.4); Eosinophils # (auto) 0.1 10 ^3/uL (0-0.8); Eosinophils % (auto) 4.9 % (0.0-7.0); Hematocrit 27.5 % (41.0-53.0); Hemoglobin 9.7 g/dL (13.5-17.5); Lipase 80 U/L (12-53); Lymphocytes # (auto) 0.3 10 ^3/uL (0.4-5.4); Lymphocytes % (auto) 11.4 % (10.0-50.0); Mean Corpuscular Hgb Conc. 35.3 g/dL (32.0-36.0); Mean Corpuscular Volume 110.4 fL (80.0-100.0); Monocytes # (auto) 0.1 10 ^3/uL (0-1.3); Monocytes % (auto) 2.7 % (0.0-12.0); Neutrophils % (auto) 80.3 % (37.0-80.0); Nucleated Red Blood Cells % 0.1 %; Platelet Count (auto) 121 10^3/uL (140-450); Red Blood Cells 2.49 10^6/uL (4.5-5.90); Red Cell Distribution Width 17.9 % (11.8-14.3); Sodium 131 mmol/L (136-145); Total Protein 5.3 g/dL (5.7-8.2); White Blood Cell 2.5 10^3/uL (4.4-10.8)
[2024-06-28] MEDS: ALBUMIN 25% 100 ML IV ONE ×2 (02:00→07:00)
[2024-06-28 02:03] LABS: BUN/Creatinine Ratio 17.8 (10.0-20.0)
[2024-06-28 02:06] LABS: Lactic Acid w/Reflex 3.7 mmol/L (0.4-2.0)
[2024-06-28 02:16] LABS: Macrocytosis Moderate
[2024-06-28 02:18] LABS: Large Platelets FEW; Platelet Estimate Decrea
--- NOTE | 2024-06-28 02:55 | ED.PDOC ---
HPI Comments This patient is a severely morbidly obese 54-year-old male who was brought in by EMS today due to complaints of chest pain and shortness of breath concerns for the past day. Patient has a history of CHF as well as cirrhosis. Patient arrives jaundiced and very weak. Patient denies any fever nausea or vomiting. Patient was hypotensive on arrival at 74/32. Chief Complaint: Chest Pain Time Seen by MD: 01:10 Reviewed Notes: Nurses Notes, Fagoting Machine Operator Notes Allergies: Coded Allergies: NO KNOWN ALLERGIES (Unverified , 07/15/15) Home Meds Reported Medications Spironolactone (Spironolactone) 100 Mg Tab, 1 TAB PO DAILY for FOR LIVER 06/21/24 Furosemide (Furosemide) 40 Mg Tab, 1 TAB PO DAILY for WATER RETENTION 06/21/24 Information Source: Patient, Emergency Med Personnel Mode of Arrival: EMS Severity: Severe Timing: Days Duration: Since onset Prehospital treatment: 12 Lead EKG Location: Substernal Quality: Crushing Onset: At Rest Cardiac Risk Factors: Diabetes History of: None Associated Signs and Symptoms: SOB, Calf Pain Past Medical History PAST MEDICAL HISTORY: CHF, Liver Surgical History: Denies all surgeries Family History Family History: Reviewed,noncontributory to illness Social History Smoker: Non-Smoker Alcohol: Sober Drugs: Denies Drug Use Lives In: Home Constitutional: reports: fatigue, weakness; denies: chills, diaphoresis, fever, malaise, sweats, others EENTM: denies: blurred vision, double vision, ear bleeding, ear discharge, ear drainage, ear pain, ear ringing, eye pain, eye redness, hearing loss, mouth pain, mouth swelling, nasal discharge, nose bleeding, nose congestion, nose pain, photophobia, tearing, throat pain, throat swelling, voice changes, others Respiratory: reports: SOB at rest, shortness of breath; denies: cough, hemoptysis, orthopnea, SOB with excertion, stridor, wheezing, others Cardiovascular: reports: chest pain; denies: dizzy spells, diaphoresis, Dyspnea on exertion, edema, irregular heart beat, left arm pain, lightheadedness, palpitations, PND, syncope, others Gastrointestinal: denies: abdomen distended, abdominal pain, blood streaked bowels, constipated, diarrhea, dysphagia, difficulty swallowing, hematemesis, melena, nausea, poor appetite, poor fluid intake, rectal bleeding, rectal pain, vomiting, others Genitourinary: denies: burning, dysuria, flank pain, frequency, hematuria, incontinence, penile discharge, penile sore, pain, testicle pain, testicle swelling, urgency, others Neurological: denies: dizziness, fainting, headache, left sided numbness, left sided weakness, numbness, paresthesia, pre-existing deficit, right sided numbness, right sided weakness, seizure, speech problems, tingling, tremors, weakness, others Musculoskeletal: denies: back pain, gout, joint pain, joint swelling, muscle pain, muscle stiffness, neck pain, others Integumetry: denies: bruises, change in color, change in hair/nails, dryness, laceration, lesions, lumps, rash, wounds, others Allergic/Immunocompromised: denies: Difficulty Healing, Frequent Infections, Hives, Itching, others Hematologic/Lymphatic: denies: anemia, blood clots, easy bleeding, easy bruising, swollen glands, others Endocrine: denies: excessive hunger, excessive sweating, excessive thirst, excessive urination, flushing, intolerance to cold, intolerance to heat, unexplained weight gain, unexplained weight loss, others Psychiatric: denies: anxiety, bipolar disorder, depression, hopeless, panic disorder, schizophrenia, sleepless, suicidal, others Physical Exam General Appearance: Moderate Distress (Patient presents as an ill 54-year-old male.), Obese HEENT: Pharynx Normal, Scleral Icterus (L), Scleral Icterus (R), TMs Normal Neck: Full Range of Motion, Non-Tender, Normal, Normal Inspection Respiratory: Chest Non-Tender, No Accessory Muscle Use, Normal Breath Sounds, Other (Patchy rhonchi with patchy wheeze appreciated on auscultation.) Cardiovascular: No Edema, No JVD, No Murmur, No Gallop, Normal Peripheral Pulses, Regular Rate/Rhythm Breast Exam: Deferred Gastrointestinal: No Organomegaly, Non Tender, No Pulsatile Mass, Normal Bowel Sounds, Soft Genitalia: Deferred Pelvic: Deferred Rectal: Deferred Extremities: Other (Patient displays significant bilateral lower extremity pitting edema.) Neurologic: Alert, No Motor Deficits, Normal Mood, No Sensory Deficits Cerebellar Function: Normal Reflexes: Normal Skin: Jaundice Lymphatic: No Adenopathy Was a procedure done? Was a procedure done?: No Central Line Recorder of insertion practice: Observer Other Procedure Procedure Ultrasound guided right external jugular line Gauge 18 Indication Hypotension Anesthetic Nothing Prep Betadine swabs Success Yes Informed consent obtained: Yes Risks, benefits, and alternati: Yes CP Differential Dx Differential Diagnosis: A-fib, A-Flutter, Angina, Anxiety / Panic Attack, AV Block 1st Degree, SC Differential Diagnosis: CHF, Other (Hypotension) X-Ray, Labs, Meds, VS Vital Signs Date Time Temp Pulse Resp B/P (MAP) Pulse Ox O2 Delivery O2 Flow Rate FiO2 06/28/24 04:15 97 21 106/46 (66) 95 06/28/24 04:09 106/46 06/28/24 04:00 94 21 113/42 (65) 96 06/28/24 04:00 106/46 06/28/24 03:45 92 20 102/41 (61) 97 06/28/24 03:30 79/30 06/28/24 03:30 91 24 99/38 (58) 95 06/28/24 03:20 91/34 06/28/24 03:15 90 20 75/36 (49) 98 06/28/24 03:15 75/36 06/28/24 03:10 85/27 06/28/24 03:06 91 18 98/33 (54) 97 06/28/24 03:05 98/33 06/28/24 03:00 78/25 06/28/24 03:00 95 26 78/25 (42) 95 06/28/24 02:47 88 06/28/24 02:40 86 21 90/33 (52) 97 06/28/24 02:15 90 17 95/31 (52) 97 06/28/24 02:00 90 14 79/30 (46) 92 06/28/24 01:47 94/35 06/28/24 01:04 85 06/28/24 01:00 98.4 86 20 79/45 (56) 96 Lab Test 06/28/24 03:20 06/28/24 02:25 06/28/24 01:20 Range/Units Lactic Acid Level 3.7 *H 3.7 *H 0.4-2.0 mmol/L Troponin I High Sensitivity 11 11 </=54 ng/L White Blood Count 2.5 L 4.4-10.8 10^3/uL Red Blood Count 2.49 L 4.5-5.90 10^6/uL Hemoglobin 9.7 L 13.5-17.5 g/dL Hematocrit 27.5 L 41.0-53.0 % Mean Corpuscular Volume 110.4 H 80.0-100.0 fL Mean Corpuscular Hemoglobin 39.0 H 28.0-32.0 pg Mean Corpuscular Hemoglobin Concent 35.3 32.0-36.0 g/dL Red Cell Distribution Width 17.9 H 11.8-14.3 % Platelet Count 121 L 140-450 10^3/uL Mean Platelet Volume 6.4 L 6.9-10.8 fL Neutrophils (%) (Auto) 80.3 H 37.0-80.0 % Lymphocytes (%) (Auto) 11.4 10.0-50.0 % Monocytes (%) (Auto) 2.7 0.0-12.0 % Eosinophils (%) (Auto) 4.9 0.0-7.0 % Basophils (%) (Auto) 0.7 0.0-2.0 % Neutrophils # (Auto) 2.0 1.6-8.6 10 ^3/uL Lymphocytes # (Auto) 0.3 L 0.4-5.4 10 ^3/uL Monocytes # (Auto) 0.1 0-1.3 10 ^3/uL Eosinophils # (Auto) 0.1 0-0.8 10 ^3/uL Basophils # (Auto) 0 0-0.2 10 ^3/uL Nucleated Red Blood Cells 0.1 % Platelet Estimate Decrea Large Platelets Few Macrocytosis Moderate Sodium Level 131 L 136-145 mmol/L Potassium Level 4.1 3.5-5.1 mmol/L Chloride Level 100 98-107 mmol/L Carbon Dioxide Level 20 20-31 mmol/L Anion Gap 11 5-15 Blood Urea Nitrogen 33 H 9-23 mg/dL Creatinine 1.85 H 0.700-1.30 mg/dL Glomerular Filtration Rate Calc 43 >90 mL/min BUN/Creatinine Ratio 17.8 10.0-20.0 Serum Glucose 95 74-106 mg/dL Calcium Level 8.1 L 8.7-10.4 mg/dL Total Bilirubin 16.8 H 0.2-1.0 mg/dL Aspartate Amino Transferase (AST) 162 H 13-40 U/L Alanine Aminotransferase (ALT) 85 H 7-40 U/L Alkaline Phosphatase 135 H 46-116 U/L B-Type Natriuretic Peptide 50.82 0-100 pg/mL Total Protein 5.3 L 5.7-8.2 g/dL Albumin 2.5 L 3.2-4.8 g/dL Lipase 80 H 12-53 U/L Current Medications Medications (Trade) Dose Ordered Sig/Jonatan Route Start Time Stop Time Status Last Admin Albumin Human 100 ml @ 100 mls/hr ONCE ONCE IV 06/28/24 02:00 06/28/24 02:59 DC 06/28/24 02:00 Norepinephrine Bitartrate 250 ml @ 3.75 mls/hr Q24H IV 06/28/24 03:30 06/28/24 03:00 Fentanyl Citrate 25 mcg ONCE ONCE IV 06/28/24 04:00 06/28/24 04:01 DC 06/28/24 04:09 X-Ray, Labs, Meds, VS Comment All studies performed in the ED were evaluated by me personally. Laboratories revealed hyponatremia, thrombocytopenia, anemia, acute on chronic renal injury, hypocalcemia, elevated lactic acid as well as transaminitis related to his liver concerns. Imaging studies revealed interstitial pulmonary edema and EKG revealed a sinus rhythm with a rate of 88, abnormal R-wave progression, borderline T-wave abnormalities, prolonged QT interval with a OK interval of 155 and a QT interval 422. Patient's blood pressure has been difficult to elevate will require central line placement and probable pressors. Patient will be admitted for multiple comorbidities and required multiple specialty consultations. Time of 1ST Reevaluation: 03:19 Reevaluation 1ST: Unchanged Consultation: PCP, Cardiology Patient Education/Counseling: Diagnosis, Treatment Family Education/Counseling: Diagnosis, Treatment Departure 1 Departure Time of Disposition: 03:28 Impression: Primary Impression: Liver cirrhosis Additional Impressions: Hypocalcemia Elevated lactic acid level Zjjjy-dj-[id number] kidney injury Hyponatremia Thrombocytopenia Anemia Pulmonary edema Hypotension Disposition: 09 ADMITTED INPATIENT Condition: Fair Discharged With: Self Critical Care Note Critical Care Time?: Yes (45 min-critical care time only) Critical care comment: Due to the high probability of a clinically significant and possibly life- threatening deterioration, the patient required my highest level of preparedness to intervene emergently and therefore, I personally provided 45 minutes of critical care time exclusive of time spent on separate billable procedures. This critical care time includes, but is not limited to, obtaining additional history, re-examination of the patient, continue reveals a pulse oximetry as well as ordering and reviewing of additional studies, arrangement of urgent treatment with the development of a management plan and evaluation of the patient's response to treatment with frequent reassessments and discussions with the the providers. Stability Stability form required: No Heart Score Heart Score: Heart Score Response (Comments) Value History Slightly Suspicious 0 EKG Repolarization Disturb 1 Age 45-64 1 Risk Factors >3 or Hx ASHD 2 Troponin Normal limit 0 Total 4 I personally scribed for JANET POWERS MD ([email or web address]) on 06/28/24 at 05:51. Electronically submitted by Joe Fuentes ([facility]). CHIQUI WASHINGTON PAC Jun 28, 2024 02:54 JANET POWERS MD Jun 28, 2024 05:51
[2024-06-28] MEDS: NOREPINEPHRINE 8 MG/250ML KIT 250 ML IV SCH (03:00)
[2024-06-28] MEDS: NOREPINEPHRINE 8 MG/250ML KIT 250 ML IV ONE (03:30)
[2024-06-28] MEDS: fentaNYL CITRATE 100 MCG/2 ML VL IV ONE (04:09)
--- NOTE | 2024-06-28 04:44 | DVHHP2 ---
History of Present Illness Reason for Visit: Hypotension History of Present Illness The patient is a 54-year-old male with past medical history of CHF, liver cirrhosis, and thyroid disease who presented to [facility] ED with complaint of chest pain. Patient reports symptoms progressively get worse with shortness of breath, jaundice, generalized weakness, getting worse that prompted this visit. Patient was seen and evaluated in the ED, laboratory data shows WBC 2.5, hemoglobin 9.7, hematocrit 27.5, platelets 121, sodium 131, potassium 4.1, BUN 33, creatinine 1.85, glucose 95, AST 162, ALT 85, total bilirubin 16.8, calcium 8.1, lipase 80, albumin 2.5, protein 5.3, troponin 11, lactic acid 3.7, blood pressure 79/45 trending up to 106/46, heart rate 97, temperature 98.4 F, O2 saturation 95% on oxygen. Chest x-ray revealing moderate interstitial pulmonary edema, trace right pleural effusion. Patient was started on norepinephrine drip, please see medication orders section in the computer. On my assessment, patient denied chest pain, no headache, no dizziness, no diaphoresis, currently on oxygen, no diarrhea, no nausea, no vomiting, no fever, no chills. Patient was admitted for further evaluation and medical management. Past Medical History CHF, Liver cirrhosis, Thyroid disease Past Surgical History Denies all surgeries Family History Reviewed, noncontributory to the management of this case. Past Social History The patient lives at home, sober alcohol, denies smoking or illicit drugs abuse. Review of Systems Constitutional: Yes: Weakness, Other (Fatigue); No: Fever, Chills, Sweats, Malaise Eyes: No: Pain, Vision change, Conjunctivae inflammation, Eyelid inflammation, Other, Redness ENT: No: Ear pain, Ear discharge, Nose pain, Nose discharge, Nose congestion, Mouth pain, Mouth swelling, Throat pain, Throat swelling, Other Respiratory: Shortness of breath, Other (SOB at rest); No: Cough, Dry, SOB with excertion, Wheezing, Hemoptysis, Pleuritic Pain, Sputum, Wheezing Cardiovascular: Chest Pain; No: Palpitations, Orthopnea, Paroxysmal Noc. Dyspne a, Edema, Lt Headedness, Other Gastrointestinal: No: Nausea, Vomiting, Abdominal Pain, Diarrhea, Constipation, Melena, Hematochezia, Other Genitourinary: No Dysuria, No Frequency, No Incontinence, No Hematuria, No Retention, No Other Musculoskeletal: No: other, neck pain, shoulder pain, arm pain, back pain, hand pain, leg pain, foot pain Skin: No: Rash, Lesions, Jaundice, Bruising, Other Neurological: No: Weakness, Numbness, Incoordination, Change in speech, Confusion, Seizures, Other Allergies: Coded Allergies: NO KNOWN ALLERGIES (Unverified , 07/15/15) Medications Current Medications Medications Dose Ordered Sig/Jonatan Route Start Time Stop Time Status Last Admin Dose Admin Norepinephrine Bitartrate 250 ml @ 3.75 mls/hr Q24H IV 06/28/24 03:30 06/28/24 03:00 3.75 MLS/HR Exam Vital Signs Vital Signs Date Time Temp Pulse Resp B/P (MAP) Pulse Ox O2 Delivery O2 Flow Rate FiO2 06/28/24 04:15 97 21 106/46 (66) 95 06/28/24 01:00 98.4 General Appearance: Alert, Oriented X3, Cooperative, No acute distress HEENT: Atraumatic, PERRLA, EOMI, Mucous membr. moist/pink Respiratory: Normal air movement, Other (Diminished breath sounds) Cardiovascular: Regular rate, Normal S1, Normal S2, No murmurs Abdominal: Normal bowel sounds, Soft, No tenderness, No hepatospenomegaly, No masses Extremities: No clubbing, No cyanosis, No edema, Normal pulses, No tenderness/swelling Skin: No rashes, No breakdown, No significant lesion Neuro: Normal speech, Normal tone, Sensation intact, Cranial nerves 3-12 NL, Reflexes 2+, Other (Generalized weakness) Psych/Mental Status: Mental status NL, Mood NL Labs/Xrays Labs Test 06/28/24 03:20 06/28/24 02:25 06/28/24 01:20 Range/Units Troponin I High Sensitivity 11 </=54 ng/L White Blood Count 2.5 L 4.4-10.8 10^3/uL Red Blood Count 2.49 L 4.5-5.90 10^6/uL Hemoglobin 9.7 L 13.5-17.5 g/dL Hematocrit 27.5 L 41.0-53.0 % Mean Corpuscular Volume 110.4 H 80.0-100.0 fL Mean Corpuscular Hemoglobin 39.0 H 28.0-32.0 pg Mean Corpuscular Hemoglobin Concent 35.3 32.0-36.0 g/dL Red Cell Distribution Width 17.9 H 11.8-14.3 % Platelet Count 121 L 140-450 10^3/uL Mean Platelet Volume 6.4 L 6.9-10.8 fL Neutrophils (%) (Auto) 80.3 H 37.0-80.0 % Lymphocytes (%) (Auto) 11.4 10.0-50.0 % Monocytes (%) (Auto) 2.7 0.0-12.0 % Eosinophils (%) (Auto) 4.9 0.0-7.0 % Basophils (%) (Auto) 0.7 0.0-2.0 % Neutrophils # (Auto) 2.0 1.6-8.6 10 ^3/uL Lymphocytes # (Auto) 0.3 L 0.4-5.4 10 ^3/uL Monocytes # (Auto) 0.1 0-1.3 10 ^3/uL Eosinophils # (Auto) 0.1 0-0.8 10 ^3/uL Basophils # (Auto) 0 0-0.2 10 ^3/uL Nucleated Red Blood Cells 0.1 % Platelet Estimate Decrea Large Platelets Few Macrocytosis Moderate Sodium Level 131 L 136-145 mmol/L Potassium Level 4.1 3.5-5.1 mmol/L Chloride Level 100 98-107 mmol/L Carbon Dioxide Level 20 20-31 mmol/L Anion Gap 11 5-15 Blood Urea Nitrogen 33 H 9-23 mg/dL Creatinine 1.85 H 0.700-1.30 mg/dL Glomerular Filtration Rate Calc 43 >90 mL/min BUN/Creatinine Ratio 17.8 10.0-20.0 Serum Glucose 95 74-106 mg/dL Calcium Level 8.1 L 8.7-10.4 mg/dL Total Bilirubin 16.8 H 0.2-1.0 mg/dL Aspartate Amino Transferase (AST) 162 H 13-40 U/L Alanine Aminotransferase (ALT) 85 H 7-40 U/L Alkaline Phosphatase 135 H 46-116 U/L B-Type Natriuretic Peptide 50.82 0-100 pg/mL Total Protein 5.3 L 5.7-8.2 g/dL Albumin 2.5 L 3.2-4.8 g/dL Lipase 80 H 12-53 U/L PATIENT: ANA FLAHERTY ACCT: [id number] UNIT: [id number] : 1970 LOC: ER ROOM / BED: / AGE / SEX: 54 / M ADM STATUS: REG ER SERVICE [id number] ORDERING PHYSICIAN: CHIQUI WASHINGTON PAC PROCEDURE(s): CXRP - CHEST PORTABLE REASON: Shortness of breath ORDER NUMBER(s): [id number], ACCESSION NUMBER(s): [id number] CHEST RADIOGRAPH Indication: Shortness of breath Technique: Single frontal view of the chest was obtained COMPARISON: XY CHEST PORTABLE on DOS: 06/21/24 FINDINGS: Lines and Tubes: None Lungs: Moderate interstitial pulmonary edema. Pleura: Trace right effusion. No pneumothorax. Cardiomediastinal contours: Cardiomegaly. Bones: Unremarkable IMPRESSION: 1. Moderate interstitial pulmonary edema. 2. Trace right effusion Assessment/Plan Assessment/Plan Liver cirrhosis Electrolyte imbalance Hypotension Elevated lactic acid level Pancytopenia Elevated liver enzymes Anemia, unspecified Pulmonary edema [id number] kidney injury Plan 1. Admit to intensive care unit 2. Breathing treatment 3. Pain control management 4. IV antibiotic management 5. Management of fluids and electrolytes 6. Consultation for Hematology/Oncology/nephrology/cardiology 7. Diagnostic test chest x-ray 8. DVT prophylaxis-on SCDs 9. Repeat labs CBC, CMP in a.m. 10. Home medication reviewed and reconciled 11. Continue with current medical management 12. Treatment plan discussed with patient and RN. Patient verbalized understanding. Plan discussed with: Patient, Other (RN) My Orders Orders - MARIYA JARRETT [facility] Procedure Category Date Status Time Complete Blood Count LAB 06/28/24 Transmitted 04:32 Comprehensive LAB 06/28/24 Transmitted Metabolic Panel 04:32 * Hematology/Oncology CONS 06/28/24 Transmitted Consult 04:32 * Cardiology Consult CONS 06/28/24 Transmitted 04:32 Spironolactone PHA 06/28/24 Transmitted (Aldactone) 10:00 Albumin Ivpb PHA 06/28/24 Transmitted 04:45 Ibuprofen Tablet PHA 06/28/24 Transmitted (Motrin Tablet) 04:45 Type And Screen BBK 06/28/24 Transmitted 04:32 *[facility] CONS 06/28/24 Transmitted -[place] 04:32 Admit ADMIT 12/6/24 Transmitted 04:32 Allergies BANNER 06/28/24 Transmitted 04:32 Code Status CODE 06/28/24 Transmitted 04:32 0.9% Ns 1000 Ml PHA 06/28/24 Transmitted 04:45 Oxygen Per Hour RT 06/28/24 Transmitted 04:32 Hydrocodone-Acet PHA 06/28/24 Transmitted 5/325mg Tab ([place] 04:45 Ondansetron Hcl PHA 06/28/24 Transmitted (Zofran) 04:45 Docusate Sodium PHA 06/28/24 Transmitted Capsule (Colace 04:45 Fall Risk Precautions BANNER 06/28/[address] 04:32 Complete Blood Count LAB 06/29/24 Verified 04:00 Comprehensive LAB 06/29/24 Verified Metabolic Panel 04:00 Cardiac DIET 06/28/24 Transmitted Diet-2gna,Lofat,Lochol Breakfast Condition: Critical BANNER 06/28/24 Transmitted 04:32 Sequential BANNER 06/28/24 Transmitted Compression Device Nitroglycerin PHA 06/28/24 Transmitted Sublingual (Ntrostat 04:45 Morphine Sulfate PHA 06/28/24 Transmitted Injection 04:45 Notify Md Of Changes BANNER 06/28/24 Transmitted From Base 04:32 Half Section Ironer For BANNER 06/28/24 Transmitted 24 Hours 04:32 Emergency Dysrhythmia BANNER 06/28/24 Verified Protocol 04:32 Rhythm Strips Once BANNER 06/28/24 Verified Every Shift 04:32 Oxygen By Nasal RT 06/28/24 Verified Cannula 04:32 Famotidine Injection [facility] 06/28/24 Verified (Pepcid Injection) 10:00 Problem List: (1) Liver cirrhosis (2) Anemia, unspecified (3) Hypotension (4) Elevated lactic acid level (5) Pulmonary edema (6) Elevated liver enzymes (7) Pancytopenia (8) Electrolyte imbalance (9) [id number] kidney injury Date of Service: Jun 28, 2024 Billing Provider: MARIYA JARRETT DNP Common Visit Codes: [id number] INP/OBS CARE (HIGH) MARIYA JARRETT DNP Jun 28, 2024 04:44
[2024-06-28] MEDS ORDERED: DOCUSATE SOD 100 MG CAP PO PRN (04:45)
[2024-06-28] MEDS ORDERED: NITROGLYCERIN 0.4 MG SL TAB SL PRN (04:45)
[2024-06-28] MEDS ORDERED: ONDANSETRON HCL 4 MG/2 ML VIAL IV PRN (04:45)
[2024-06-28] MEDS ORDERED: IBUPROFEN 600 MG TAB PO PRN (04:45)
[2024-06-28] MEDS: CALCIUM GLUC 1,000mg/50ml-NS 50 ML IV SCH (06:00)
[2024-06-28] MEDS: SODIUM CHLORIDE 0.9% 1,000 ML IV SCH (06:00)
[2024-06-28] MEDS: LEVOTHYROXINE SODIUM 25 MCG TAB PO SCH (06:45)
[2024-06-28 06:53] LABS: Anion Gap 12 (5-15); Carbon Dioxide 20 mmol/L (20-31); Chloride 100 mmol/L (98-107); Glucose 74 mg/dL (74-106)
[2024-06-28 06:56] LABS: Albumin 2.6 g/dL (3.2-4.8); Alkaline Phosphatase 121 U/L (46-116); Calcium 8.4 mg/dL (8.7-10.4); Sodium 132 mmol/L (136-145)
--- NOTE | 2024-06-28 07:01 | ECG ---
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
[2024-06-28 07:11] LABS: BUN/Creatinine Ratio 17.7 (10.0-20.0)
[2024-06-28 07:16] LABS: Alanine Aminotransferase 90 U/L (7-40); Aspartate Aminotransferase 178 U/L (13-40); Blood Urea Nitrogen 35 mg/dL (9-23); Total Protein 5.5 g/dL (5.7-8.2)
[2024-06-28] MEDS: HYDROcodone-ACET 5/325MG TAB PO PRN (07:31)
--- NOTE | 2024-06-28 08:06 | DVHINCON2 ---
Date Seen: Jun 28, 2024 Referring Physician GREG Marte Reason for Consultation Hypotension History of Present Illness This is a 54-year-old man who presented to the emergency room via EMS with a chief complaint of chest pain and shortness of breath. At time of assessment, the patient denied any further chest pain but did complain of shortness of breath associated with increased fatigue, abdominal pain, and a reported mechanical fall when he was chasing after his dog with reported head trauma. Upon arrival to the emergency room he was found with a systolic blood pressure in the 60s mmHg. He underwent a 12 lead electrocardiogram revealing sinus rhythm. States he had a recent admission to this facility for similar complaints and left AMA on 06/21/2024. Significant medical history includes alc oholic liver cirrhosis, history of heavy alcohol use for which he quit on 09/2023, thrombocytopenia and chronic liver disease, anemia and chronic disease, and morbid obesity. Past Medical History Past medical history reviewed. No other significant than mentioned above. Past Surgical History Multiple paracentesis Family History: FH: breast cancer G8 MOTHER FH: heart attack G8 MOTHER Family History Family history reviewed. Not significant for CV disease. Social History Denies the use of illicit drugs, alcohol, or tobacco use. Quit heavy alcohol use on 09/2023. Allergies: Coded Allergies: NO KNOWN ALLERGIES (Unverified , 07/15/15) Home Meds Reported Medications Spironolactone (Spironolactone) 100 Mg Tab, 1 TAB PO DAILY for FOR LIVER 06/21/24 Furosemide (Furosemide) 40 Mg Tab, 1 TAB PO DAILY for WATER RETENTION 06/21/24 Home Meds Home medications reviewed. Current Medications Current Medications Medications (Trade) Dose Ordered Sig/Jonatan Route PRN Reason Start Time Stop Time Status Last Admin Norepinephrine Bitartrate 250 ml @ 3.75 mls/hr Q24H IV 06/28/24 03:30 06/28/24 03:00 Calcium Gluconate/ Sodium Chloride 50 ml @ 100 mls/hr Q30M IV 06/28/24 03:30 06/28/24 04:29 DC 06/28/24 06:00 Spironolactone (Aldactone) 25 mg DAILY PO 06/28/24 10:00 Ibuprofen (Motrin Tablet) 600 mg Q6HP PRN PO PAIN SCALE 1-3 OR TEMP>100.4 06/28/24 04:45 Sodium Chloride 1,000 ml @ 60 mls/hr [id number] IV 06/28/24 04:45 06/28/24 06:00 Acetaminophen/ Hydrocodone Bitart (Ocate 5/325MG Tab) 1 tab Q4HP PRN PO MODERATE PAIN (4-6 PAIN SCALE) 06/28/24 04:45 06/28/24 07:31 Ondansetron HCl (Zofran) 4 mg Q4HP PRN IV NAUSEA / VOMITING 06/28/24 04:45 Docusate Sodium (Colace Capsule) 100 mg BIDPRN PRN PO FOR CONSTIPATION 06/28/24 04:45 Nitroglycerin (Ntrostat Sublingual) 0.4 mg Q5MINP PRN SL FOR CHEST PAIN 06/28/24 04:45 Morphine Sulfate 2 mg Q30M PRN IV FOR CHEST PAIN 06/28/24 04:45 Famotidine (Pepcid Injection) 20 mg DAILY IV 06/28/24 10:00 Lactulose 15 ml DAILY PO 06/28/24 10:00 Levothyroxine Sodium (Synthroid Tablet) 75 mcg QAM@0600 PO 06/28/24 06:00 06/28/24 06:45 Review of Systems Constitutional: No symptom reported Ears, Nose, & Throat: No symptom reported Eyes: No symptom reported Neurological: No symptoms reported Pulmonary/Respiratory: SOB Cardiovascular: Chest pain Gastrointestinal: No symptom reported Genitourinary: No symptom reported Musculoskeletal: No symptom reported Skin: No symptom reported Psychiatric: No symptom reported Endocrine: No symptom reported Hemotologic/Lymphatic: No symptom reported Vital Signs Vital Signs Date Time Temp Pulse Resp B/P (MAP) Pulse Ox O2 Delivery O2 Flow Rate FiO2 06/28/24 07:30 96/48 06/28/24 07:00 104 19 90 06/28/24 06:00 98.1 98.1 06/28/24 05:57 Room Air* 0 21 Physical Exam General Appearance: Jaundiced. Scleral icterus present. Chronically ill. Morbidly obese Head Exam: Normal inspection Neck Exam: Normal inspection. Non-tender. Normal alignment Pulmonary/Respiratory: Chest non-tender. Diminished bilateral breath sounds Cardiovascular/Chest: Regular rate and rhythm. S1, S2. Sinus rhythm. No murmurs. No JVD. Peripheral Pulses: 2+ Radial (R). 2+ Radial (L). 2+ Pedal (R). 2+ Pedal (L) Abdominal Exam: Ascites present Ankle Exam: Positive ankle pitting edema, 3+ Lower extremities: Positive lower extremity pitting edema, 3+ Neuro/Mental Status: A&O x4. Coherent Thoughts/Psych: Normal thought pattern. Anxious Appearance: Appears uncomfortable Skin Exam: Jaundiced Labs/Diagnostic Data Labs Test 06/28/24 05:25 06/28/24 03:20 06/28/24 02:25 06/28/24 01:20 Range/Units Sodium Level 132 L 136-145 mmol/L Potassium Level 4.0 3.5-5.1 mmol/L Chloride Level 100 98-107 mmol/L Carbon Dioxide Level 20 20-31 mmol/L Anion Gap 12 5-15 Blood Urea Nitrogen 35 H 9-23 mg/dL Creatinine 1.98 H 0.700-1.30 mg/dL Glomerular Filtration Rate Calc 39 >90 mL/min BUN/Creatinine Ratio 17.7 10.0-20.0 Serum Glucose 74 74-106 mg/dL Calcium Level 8.4 L 8.7-10.4 mg/dL Total Bilirubin 20.0 H 0.2-1.0 mg/dL Aspartate Amino Transferase (AST) 178 H 13-40 U/L Alanine Aminotransferase (ALT) 90 H 7-40 U/L Alkaline Phosphatase 121 H 46-116 U/L Total Protein 5.5 L 5.7-8.2 g/dL Albumin 2.6 L 3.2-4.8 g/dL Lactic Acid Level 3.7 *H 0.4-2.0 mmol/L Troponin I High Sensitivity 11 </=54 ng/L White Blood Count 2.5 L 4.4-10.8 10^3/uL Red Blood Count 2.49 L 4.5-5.90 10^6/uL Hemoglobin 9.7 L 13.5-17.5 g/dL Hematocrit 27.5 L 41.0-53.0 % Mean Corpuscular Volume 110.4 H 80.0-100.0 fL Mean Corpuscular Hemoglobin 39.0 H 28.0-32.0 pg Mean Corpuscular Hemoglobin Concent 35.3 32.0-36.0 g/dL Red Cell Distribution Width 17.9 H 11.8-14.3 % Platelet Count 121 L 140-450 10^3/uL Mean Platelet Volume 6.4 L 6.9-10.8 fL Neutrophils (%) (Auto) 80.3 H 37.0-80.0 % Lymphocytes (%) (Auto) 11.4 10.0-50.0 % Monocytes (%) (Auto) 2.7 0.0-12.0 % Eosinophils (%) (Auto) 4.9 0.0-7.0 % Basophils (%) (Auto) 0.7 0.0-2.0 % Neutrophils # (Auto) 2.0 1.6-8.6 10 ^3/uL Lymphocytes # (Auto) 0.3 L 0.4-5.4 10 ^3/uL Monocytes # (Auto) 0.1 0-1.3 10 ^3/uL Eosinophils # (Auto) 0.1 0-0.8 10 ^3/uL Basophils # (Auto) 0 0-0.2 10 ^3/uL Nucleated Red Blood Cells 0.1 % Platelet Estimate Decrea Large Platelets Few Macrocytosis Moderate B-Type Natriuretic Peptide 50.82 0-100 pg/mL Lipase 80 H 12-53 U/L Assessment Systemic vasodilation 2/2 alcoholic liver cirrhosis Anemia/thrombocytopenia secondary to above Rule out structural heart disease Recent hx of alcohol dependence Acute kidney injury Morbid obesity Ascites Plan/Recommendation (Dr. Polk) The patient presents with systemic vasodilation secondary to advanced alcoholic liver cirrhosis. Continue vasopressor and albumin infusion for hemodynamic support. We will continue further cardiac evaluation with a transthoracic echo cardiogram to rule out structural heart disease. Given reported fall injury with head trauma continue with a head CT to rule out acute processes. Discontinue IV fluids and initiate diuretic. Given ascites, obtain abdominal ultrasound and radiologist consultation for possible paracentesis. Obtain UDS, alcohol, and ammonia levels. In the setting of an unremarkable echocardiogram, there is no further cardiac workup indicated at this time. Consider midodrine therapy with optimal LVEF. Thank you for allowing us to participate in this patient's care. Please call if you have any questions or concerns. Critical care time: 40 min. This medical document was created using an electronic medical record system with voice recognition software and comp uterized dictation system. Although this document has been carefully reviewed, there might still be some phonetic and typographical errors. Occasional wrong- word or ``sound-alike substitutions may have occurred due to the inherent limitations of voice recognition software. These areas are purely typographical due to imperfections of the software programs and do not reflect any compromise in the patient's medical care. Please read the chart carefully and recognize, using context, where these substitutions have occurred. Plan discussed with: Patient, Other Date of Service: Jun 28, 2024 Billing Provider: JAI POLK MD Cardiology Common Codes: [id number] CARE 30-74 MIN [facility] Jun 28, 2024 08:06
--- NOTE | 2024-06-28 09:02 | DVH ---
EXAM: CT HEAD WITHOUT CONTRAST HISTORY: Fall injury with head trauma COMPARISON: None TECHNIQUE: Axial images of the head were obtained and reformatted in coronal and sagittal planes. All CT scans at this medical facility are performed using dose modulation techniques as appropriate t o a performed exam including the following: Automated exposure control was utilized; adjustment of th e MA and/or KV according to patient size; and use of iterative reconstruction technique. CT Dose: CTDI volume is 91.56 mGy. Dose-length product is 2706.51 mGy*cm FINDINGS: There is no evidence of acute intracranial hemorrhage, mass, mass effect midline shift. There is no h ydrocephalus or extra-axial fluid collection. Bro-white matter differentiation is maintained. The visualized paranasal sinuses and mastoid air cells are clear. The calvarium is intact. IMPRESSION: 1. No acute intracranial process. HS:Y
[2024-06-28] MEDS: SPIRONOLACTONE 25 MG TAB PO SCH (10:08)
[2024-06-28] MEDS: LACTULOSE 20Gm/30ML SOLN PO SCH (10:08)
[2024-06-28] MEDS: FAMOTIDINE (10MG/ML) 2ML VL IV SCH (10:12)
[2024-06-28] MEDS: FUROSEMIDE 20 MG/2 ML VIAL IV SCH (10:14)
[2024-06-28] MEDS: MORPHINE SULFATE INJ 2 MG/ml SYRG IV PRN (10:22)
--- NOTE | 2024-06-28 11:04 | DVHSR ---
APPROVED REPORT EXAM: LIMITED Two-dimensional and M-mode echocardiogram with Doppler and color Doppler. Blood Pressure: 96/48 mmHg INDICATION SOB RISK FACTORS Obesity: Height: 6'2, Weight: 450 DIMENSIONS LVDd (3.8-5.7cm)LA (2D)3.9 (1.9-4.0cm)Aortic Root (2.0-3.7cm) EF (%) 55.0 (55-70%)Rt. Atrium3.9 (1.9-4.0cm)Asc. Aorta cm Mitral Valve MitralMitral Stenosis E wavem/sMV Mean GR.5mmHg A wavem/sMV Peak GR.11mmHg E/A ratio0.02D MVAcm2 Aortic Valve Aortic ValveAortic Stenosis V22.78m/Joel Peak GR.31mmHg Other Information Quality : LimitedRhythm : Technically limited study due to patient position.patient moving.PT Laying on right side unable to m ove and breathing very heavy and groaning. Conclusion Normal left ventricular size and dimension. Normal left ventricular systolic function estimated ejec tion fraction 55%. There is a grade 1 diastolic dysfunction. Normal right ventricular size and dimension. Normal right ventricular systolic function. Normal right and left atrial size and dimension. Normal aortic valve structure and function. Normal mitral valve structure and function. Normal tricuspid valve structure and function. The pulmonary valve is grossly normal. No pericardial effusion.
--- NOTE | 2024-06-28 11:29 | DVH ---
ULTRASOUND ABDOMEN LIMITED INDICATION: Ascites TECHNIQUE: Ultrasound of the 4 quadrants of the abdominal cavity. COMPARISON: US ABDOMEN LIMITED on DOS: 06/21/24 FINDINGS: Ultrasound study is limited secondary to body habitus and limited patient mobility. There is ascites seen in all 4 quadrants of the abdomen. IMPRESSION: 1. Ascites identified in all 4 quadrants of the abdomen. HS:Y
--- NOTE | 2024-06-28 11:46 | DVHPN2 ---
Reviewed: Care Plan, H&P, Labs, Medications, Previous Orders, Radiology Changes from previous H/P or p: No Changes Eyes: No Pain, No Vision change, No Conjunctivae inflammation, No Eyelid inflammation, No Other, No Redness ENT: No Ear pain, No Ear discharge, No Nose pain, No Nose discharge, No Nose congestion, No Mouth pain, No Mouth swelling, No Throat pain, No Throat swelling, No Other Cardiovascular: Chest Pain; No Palpitations, No Orthopnea, No Paroxysmal Noc. Dyspnea, No Edema, No Lt Headedness, No Other Respiratory: No Cough, No Dry; Shortness of breath; No SOB with excertion, No Wheezing, No Hemoptysis, No Pleuritic Pain, No Sputum; Other (SOB at rest) Gastrointestinal: No Nausea, No Vomiting, No Abdominal Pain, No Diarrhea, No Constipation, No Melena, No Hematochezia, No Other Genitourinary: No Dysuria, No Frequency, No Incontinence, No Hematuria, No Retention, No Other Musculoskeletal: No other, No neck pain, No shoulder pain, No arm pain, No back pain, No hand pain, No leg pain, No foot pain Skin: No Rash, No Lesions, No Jaundice, No Bruising, No Other Objective Vitals Vital Signs Date Time Temp Pulse Resp B/P (MAP) Pulse Ox O2 Delivery O2 Flow Rate FiO2 06/28/24 10:22 109 18 98/36 06/28/24 07:00 90 06/28/24 06:00 98.1 98.1 06/28/24 05:57 Room Air* 0 21 Intake/Output Intake and Output 06/28/24 07:00 Intake Total 350.00 ml Balance 350.00 ml Intake IV Total 350.00 ml Medications Current Medications Medications Dose Ordered Sig/Jonatan Route Start Time Stop Time Status Last Admin Dose Admin Spironolactone 25 mg DAILY PO 06/28/24 10:00 06/28/24 10:08 25 MG Ibuprofen 600 mg Q6HP PRN PO 06/28/24 04:45 Acetaminophen/ Hydrocodone Bitart 1 tab Q4HP PRN PO 06/28/24 04:45 06/28/24 07:31 1 TAB Ondansetron HCl 4 mg Q4HP PRN IV 06/28/24 04:45 Docusate Sodium 100 mg BIDPRN PRN PO 06/28/24 04:45 Nitroglycerin 0.4 mg Q5MINP PRN SL 06/28/24 04:45 Morphine Sulfate 2 mg Q30M PRN IV 06/28/24 04:45 06/28/24 10:22 2 MG Famotidine 20 mg DAILY IV 06/28/24 10:00 06/28/24 10:12 20 MG Lactulose 15 ml DAILY PO 06/28/24 10:00 06/28/24 10:08 15 ML Levothyroxine Sodium 75 mcg QAM@0600 PO 06/28/24 06:00 06/28/24 06:45 75 MCG Furosemide 20 mg DAILY IV 06/28/24 10:00 06/28/24 10:14 20 MG Albumin Human 100 ml @ 100 mls/hr Q8H IV 06/28/24 10:15 06/29/24 03:14 Norepinephrine Bitartrate 32 mg/ Sodium Chloride 250 ml @ 0.938 mls/ hr Q24H IV 06/28/24 10:30 Laboratory Results Laboratory Tests 06/28/24 01:20 06/28/24 05:25 Chemistry Test 06/28/24 01:20 06/28/24 05:25 Albumin 2.5 g/dL (3.2-4.8) L 2.6 g/dL (3.2-4.8) L Calcium Level 8.1 mg/dL (8.7-10.4) L 8.4 mg/dL (8.7-10.4) L Total Protein 5.3 g/dL (5.7-8.2) L 5.5 g/dL (5.7-8.2) L Lipid panel Test 06/28/24 01:20 Lipase 80 U/L (12-53) H Cardiac Markers Test 06/28/24 01:20 B-Type Natriuretic Peptide 50.82 pg/mL (0-100) LFT Test 06/28/24 01:20 06/28/24 05:25 Alanine Aminotransferase (ALT) 85 U/L (7-40) H 90 U/L (7-40) H Alkaline Phosphatase 135 U/L (46-116) H 121 U/L (46-116) H Aspartate Amino Transferase (AST) 162 U/L (13-40) H 178 U/L (13-40) H Total Bilirubin 16.8 mg/dL (0.2-1.0) H 20.0 mg/dL (0.2-1.0) H Labs and/or images reviewed: Labs reviewed by me, Image(s) reviewed by me Assessment/Plan Assessment/Plan Chest pain and shortness of breath rule out coronary etiology cardiology consult by Dr. Laird appreciated, echo 55 percent ejection fraction Acute volume depletion secondary to alcoholic liver cirrhosis: Continue pressure support with Levophed and albumin Lasix Anemia/thrombocytopenia secondary to above Rule out structural heart disease echo 55 percent ejection fraction Chronic current alcohol abuse: Counseling Alcoholic cirrhosis: Spironolactone Hypothyroidism: Synthroid Acute kidney injury Jaundice with bilirubin 16.[address] Cordova Morbid obesity Ascites: Radiology consult for paracentesis Patient Left AMA during last visit 06/21/2024 Time spent 65 minutes Patient is full code Advanced care planning time 20 minutes Prognosis very poor Plan discussed with: Patient Date of Service: Jun 28, 2024 Common Visit Codes: [id number] CARE 30-74 MIN RUPESH HORNE MD Jun 28, 2024 11:46
[2024-06-28] MEDS: MIDODRINE HCL 10 MG TAB PO SCH (12:45)
--- NOTE | 2024-06-28 12:46 | ECG ---
[facility] Test Date: 2024-06-28 Test Time: 01:04:18 Pat Name: ANA FLAHERTY Department: er Room: [address] [place] [address] Gender: M Cmm Technician: demario : 1970 Requested By: JANET POWERS Order Number: [id number] Reading MD: Measurements Intervals Myrtle Rate: 85 P: 35 WI: 150 QRS: 3 QRSD: 95 T: 67 QT: 399 QTc: 475 Interpretive Statements Sinus rhythm Abnormal R-wave progression, early transition Please click the below link to view image of tracing.
[2024-06-28] MEDS: FUROSEMIDE INJECTION 0 ML ONE (12:52)
[2024-06-28] MEDS: NITROGLYCERIN 50MG/250ML 0 ML IV ONE (12:52)
[2024-06-28] MEDS: LORazepam 2MG/ML-1ML VIAL IV ONE (12:55)
[2024-06-28] MEDS: LORazepam 2MG/ML-1ML VIAL ONE (12:55)
--- NOTE | 2024-06-28 13:29 | ED.PDOC ---
Was a procedure done? 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 Electronically submitted by Catherine Patten ([employer]). I personally scribed for HASMUKH ALAN MD ([facility]) on 06/28/24 at 13:30. Electronically submitted by Catherine Patten ([employer]). I personally scribed for HASMUKH ALAN MD ([facility]) on 06/28/24 at 15:34. Electronically submitted by Catherine Patten ([employer]). HASMUKH ALAN MD Jun 28, 2024 13:29
[2024-06-28] MEDS: ETOMIDATE (2MG/ML) 20ML VIAL IV ONE ×2 (13:39→13:51)
[2024-06-28] MEDS: ROCURONIUM 10MG/ML 10ML VIAL IV ONE ×2 (13:40→13:52)
[2024-06-28] MEDS: fentaNYL Drip 2500mCg/250mlNS 250 ML IV ONE (13:57)
[2024-06-28] MEDS: ALBUMIN 25% 100 ML IV SCH (14:08)
[2024-06-28] MEDS: fentaNYL Drip 2500mCg/250mlNS 250 ML IV SCH (14:10)
[2024-06-28] MEDS: NOREPINEPHRINE BITARTRATE 32 MG in SODIUM CHL 0.9% 218 ML IV SCH (14:10)
--- NOTE | 2024-06-28 14:54 | DVHNC2 ---
Intubation Indication: Respiratory Insufficiency, Altered Mental Status Prep: Preoxygenation Medicated with: Other (Etomidate and rocuronium) Intubation Approach: Orotracheal Intubation size: cm (8 cm) Date of Service: Jun 28, 2024 Billing Provider: DUNIA OLVERA MD Common Visit Codes: PROCEDURE ONLY LIANNE DERAS RESIDENT Jun 28, 2024 14:54
--- NOTE | 2024-06-28 15:08 | DVH ---
CLINICAL INFORMATION: 54 years old, Male; central line placement. TECHNIQUE: AP portable chest radiographs were obtained COMPARISON: XY CHEST PORTABLE on DOS: 06/28/24, XY CHEST PORTABLE on DOS: 06/21/24 FINDINGS: The study consists of AP portable chest radiographs, 2 of which were obtained outer central line plac ement and before endotracheal tube and enteric tube placement and 2 radiographs obtained after endotr acheal tube placement enteric tube placement. The right subclavian central venous catheter extends to approximately the SVC / RA junction. There is no pneumothorax. The images obtained after intubation demonstrate an endotracheal tube with the approximately 5.5 cm above the level of the vj. Enteri c tube extends more distally, although the enteric tube is not well visualized below the mid distal m ediastinal level due to prominent soft tissue density obscuring visualization. There are prominent in terstitial opacities and airspace opacities bilaterally. There is a small to moderate right pleural e ffusion. IMPRESSION: 1. Satisfactory positioning of the right subclavian central venous catheter. 2. Endotracheal tube distal tip is approximately 5.5 cm above the level of the vj. Distal portion s of the enteric tube are obscured by overlying soft tissue density. 3. Bilateral airspace opacities and interstitial opacities with small to moderate right pleural effus ion. Findings are suspicious for pulmonary edema in the appropriate clinical setting. 4. No pneumothorax visualized.
--- NOTE | 2024-06-28 15:10 | DVH ---
EXAM: XY CHEST XRAY 1 VIEW Indication: INTUBATION Technique: Single frontal view of the chest was obtained Comparison: XY CHEST PORTABLE on DOS: 06/28/24, XY CHEST PORTABLE on DOS: 06/21/24 FINDINGS: Evaluation is limited due to technique of exam. Lines and Tubes: Endotracheal tube projects 5.5 cm above the vj. Right central venous catheter ti p projects over the right atrium. Lungs: Right lower thorax is collimated from field of view. Diffuse interstitial opacities. Pleura: Right pleural effusion. No pneumothorax. Cardiomediastinal contours: Unremarkable Bones: No acute osseous abnormality. IMPRESSION: Diffuse interstitial opacities and right pleural effusion. Lines and tubes in appropriate position.
[2024-06-28 15:31] LABS: Hematocrit 29.2 % (41.0-53.0); INR 2.23 (0.9-1.15); Mean Corpuscular Hemoglobin 40.2 pg (28.0-32.0); Mean Corpuscular Hgb Conc. 34.4 g/dL (32.0-36.0); Platelet Count (auto) 104 10^3/uL (140-450); Prothrombin Time 22.3 sec (9.3-11.8); Red Cell Distribution Width 18.1 % (11.8-14.3)
[2024-06-28 15:34] LABS: Basophils % (manual) 0 (0.0-2.0); Blast Cells 0; Eosinophils % (manual) 0 (0-7); Metamyelocytes % 0; Myelocytes % 0; Promyelocytes % 0; Reactive Lymphocytes 0
[2024-06-28] MEDS: VASOPRESSIN 20 UNITS in SODIUM CHL 0.9% 99 ML IV SCH (15:51)
[2024-06-28] MEDS: PHENYLEPHRINE IV 250 ML IV SCH (16:32)
[2024-06-28] MEDS: SODIUM BICARB 8.4% 50Meq/50ml SYR Vial IV ONE ×4 (16:42→22:23)
[2024-06-28 17:28] LABS: Band Neutrophils % (manual) 2; Lymphocytes % (manual) 28 (10.0-50.0); Monocytes % (manual) 4 (0-12)
[2024-06-28 17:29] LABS: Macrocytosis Slight; Platelet Estimate Decreased
[2024-06-28] MEDS: MIDAZOLAM DRIP 50 mg/50mL 50 ML IV SCH (17:36)
[2024-06-28] MEDS: NOREPINEPHRINE BITARTRATE 32 MG in D5W 5% 218 ML IV SCH (17:52)
--- NOTE | 2024-06-28 18:02 | DVHINCON2 ---
Date of service: Jun 28, [address] Winter Fontana Reason for Consultation Ventilator management History of Present Illness 54-year-old man history of CHF, liver cirrhosis, thyroid disease who presented with chest pain. His shortness breath progressively got worse, jaundice, generalized weakness. This prompted his visit. He was recently seen last week due to ascites. He had a paracentesis performed on patient left against medical advice. He was currently on pressors for hemodynamic support. He was on mechanical ventilation. Pulmonary consultation is called for acute hypoxic respiratory failure on mechanical ventilator management. Review of systems: 14 point review of systems is negative unless otherwise noted above. Past medical history: CHF, liver cirrhosis, thyroid disease, morbid obesity Past surgical history: Prior paracentesis Medications: Reviewed Allergies: No known drug allergies. Family history: No family history of premature CAD. No family history of lung disease Social history: Sober alcohol. No smoking or illicit drug use. Lives at home. Family History: FH: breast cancer G8 MOTHER FH: heart attack G8 MOTHER Allergies: Coded Allergies: NO KNOWN ALLERGIES (Unverified , 07/15/15) Home Meds Reported Medications Spironolactone (Spironolactone) 100 Mg Tab, 1 TAB PO DAILY for FOR LIVER 06/21/24 Furosemide (Furosemide) 40 Mg Tab, 1 TAB PO DAILY for WATER RETENTION 06/21/24 Current Medications Current Medications Medications (Trade) Dose Ordered Sig/Jonatan Route PRN Reason Start Time Stop Time Status Last Admin Norepinephrine Bitartrate 250 ml @ 3.75 mls/hr Q24H IV 06/28/24 03:30 06/28/24 10:19 DC 06/28/24 03:00 Calcium Gluconate/ Sodium Chloride 50 ml @ 100 mls/hr Q30M IV 06/28/24 03:30 06/28/24 04:29 DC 06/28/24 06:00 Spironolactone (Aldactone) 25 mg DAILY PO 06/28/24 10:00 06/28/24 10:08 Ibuprofen (Motrin Tablet) 600 mg Q6HP PRN PO PAIN SCALE 1-3 OR TEMP>100.4 06/28/24 04:45 Sodium Chloride 1,000 ml @ 60 mls/hr [id number] IV 06/28/24 04:45 06/28/24 08:09 DC 06/28/24 06:00 Acetaminophen/ Hydrocodone Bitart (Howes 5/325MG Tab) 1 tab Q4HP PRN PO MODERATE PAIN (4-6 PAIN SCALE) 06/28/24 04:45 06/28/24 07:31 Ondansetron HCl (Zofran) 4 mg Q4HP PRN IV NAUSEA / VOMITING 06/28/24 04:45 Docusate Sodium (Colace Capsule) 100 mg BIDPRN PRN PO FOR CONSTIPATION 06/28/24 04:45 Nitroglycerin (Ntrostat Sublingual) 0.4 mg Q5MINP PRN SL FOR CHEST PAIN 06/28/24 04:45 Morphine Sulfate 2 mg Q30M PRN IV FOR CHEST PAIN 06/28/24 04:45 06/28/24 10:22 Famotidine (Pepcid Injection) 20 mg DAILY IV 06/28/24 10:00 06/28/24 10:12 Lactulose 15 ml DAILY PO 06/28/24 10:00 06/28/24 10:08 Levothyroxine Sodium (Synthroid Tablet) 75 mcg QAM@0600 PO 06/28/24 06:00 06/28/24 06:45 Furosemide (Lasix Injection) 20 mg DAILY IV 06/28/24 10:00 06/28/24 10:14 Albumin Human 100 ml @ 100 mls/hr Q8H IV 06/28/24 10:15 06/29/24 03:14 06/28/24 14:08 Norepinephrine Bitartrate 32 mg/ Sodium Chloride 250 ml @ 0.938 mls/ hr Q24H IV 06/28/24 10:30 06/28/24 16:08 DC 06/28/24 14:10 Midodrine (Proamatine Tablet) 10 mg TID@0600,1200,1800 PO 06/28/24 12:45 Midazolam HCl 50 ml @ 1 mls/hr Q24H IV 06/28/24 13:45 06/28/24 17:36 Fentanyl Citrate 250 ml @ 2.5 mls/hr Q24H IV 06/28/24 13:45 06/28/24 14:10 Vasopressin 20 units/Sodium Chloride 100 ml @ 9 mls/hr Q11H7M IV 06/28/24 15:30 06/28/24 15:51 Epinephrine HCl 250 ml @ 7.5 mls/hr Q24H IV 06/28/24 16:15 Phenylephrine HCl 250 ml @ 30 mls/hr Q8H20M IV 06/28/24 16:15 06/28/24 16:32 Norepinephrine Bitartrate 32 mg/ Dextrose 250 ml @ 0.938 mls/ hr Q24H IV 06/28/24 16:15 Vital Signs Vital Signs Date Time Temp Pulse Resp B/P (MAP) Pulse Ox O2 Delivery O2 Flow Rate FiO2 06/28/24 17:36 75/20 06/28/24 16:12 98.4 102 24 96 50 98.4 06/28/24 13:01 Facial BiPAP Mask 06/28/24 07:35 0 Physical Exam Gen.: Patient lying in bed in medical ICU. Sedated, intubated on mechanical ventilator. Head: Normocephalic, atraumatic. Eyes: PERRLA. Ears: Normal external anatomy. Throat: Endotracheal tube and orogastric tube in place. Neck: Supple, trachea midline. Chest: Transmitted breath sounds bilaterally. Decreased air entry bilaterally. No wheezing. Bibasilar crackles. Cardio vascular: Positive S1, positive S2. Regular rate and rhythm. Abdomen: Positive bowel sounds in all 4 quadrants. Soft, nontender, non distended. : Boucher in place. Normal external genitalia. Rectal: Deferred Skin: Warm, dry. Intact. Extremities: 2+ radial pulses bilaterally. No lower extremity edema. Neuro: Sedated. Labs/Diagnostic Data Labs Test 06/28/24 15:45 06/28/24 14:49 06/28/24 05:25 06/28/24 03:20 Range/Units Blood Gas Specimen Type Arterial Blood Gas Sample Site Right radial Blood Gas Patient Temperature 37.0 Arterial Blood Date Drawn [id number] Arterial Blood pH 6.862 *L 7.350-7.450 Arterial Blood Partial Pressure CO2 71.2 *H 35.0-48.0 mmHg Arterial Blood Partial Pressure O2 136.9 H 83.0-108.0 mmHg Arterial Blood HCO3 12.5 L 21.0-28.0 mmol/L Arterial Blood Oxygen Saturation 96.1 94.0-98.0 % Arterial Blood Base Excess -21.0 L -2.0-3.0 mmol/L Arterial Blood Oxyhemoglobin 93.5 L 94.0-98.0 % Arterial Blood Carboxyhemoglobin 2.3 H 0.5-1.5 % Arterial Blood Methemoglobin 0.4 0.0-1.5 % Arnold Test Modified Blood Gas Total Hemoglobin 10.60 L 13.5-17.5 g/dL Blood Gas Set Respiration Rate 16.0 Blood Gas Modality Vent - ac FiO2 % 100.0 Blood Gas Tidal Volume 500.0 Blood Gas PEEP or CPAP 5.0 Blood Gas Critical Value Read Back Yes Blood Gas Notified Whom Blood Gas Notified Time [id number] Blood Gas Notified By Nirav nichole White Blood Count 2.0 L 4.4-10.8 10^3/uL Red Blood Count 2.50 L 4.5-5.90 10^6/uL Hemoglobin 10.0 L 13.5-17.5 g/dL Hematocrit 29.2 L 41.0-53.0 % Mean Corpuscular Volume 117.0 #H 80.0-100.0 fL Mean Corpuscular Hemoglobin 40.2 H 28.0-32.0 pg Mean Corpuscular Hemoglobin Concent 34.4 32.0-36.0 g/dL Red Cell Distribution Width 18.1 H 11.8-14.3 % Platelet Count 104 L 140-450 10^3/uL Mean Platelet Volume 7.4 6.9-10.8 fL Neutrophils (%) (Auto) 37.0-80.0 % Lymphocytes (%) (Auto) 10.0-50.0 % Monocytes (%) (Auto) 0.0-12.0 % Basophils (%) (Auto) 0.0-2.0 % Neutrophils # (Auto) 1.6-8.6 10 ^3/uL Lymphocytes # (Auto) 0.4-5.4 10 ^3/uL Monocytes # (Auto) 0-1.3 10 ^3/uL Differential Total Cells Counted 100.0 100 Neutrophils % (Manual) 66 37.0-80.0 Band Neutrophils % (Manual) 2 Lymphocytes % (Manual) 28 10.0-50.0 Monocytes % (Manual) 4 0-12 Eosinophils % (Manual) 0 0-7 Basophils % (Manual) 0 0.0-2.0 Metamyelocytes % (manual) 0 Myelocytes % (Manual) 0 Promyelocytes % (Manual) 0 Blast Cells % (Manual) 0 Nucleated Red Blood Cells 1.0 % Reactive Lymphocytes 0 Platelet Estimate Decreased Macrocytosis Slight Prothrombin Time 22.3 H 9.3-11.8 sec Prothrombin Time INR 2.23 H 0.9-1.15 Ammonia 159 *H 11-32 umol/L Plasma/Serum Blood Alcohol 5.2 <10 mg/dL Sodium Level 132 L 136-145 mmol/L Potassium Level 4.0 3.5-5.1 mmol/L Chloride Level 100 98-107 mmol/L Carbon Dioxide Level 20 20-31 mmol/L Anion Gap 12 5-15 Blood Urea Nitrogen 35 H 9-23 mg/dL Creatinine 1.98 H 0.700-1.30 mg/dL Glomerular Filtration Rate Calc 39 >90 mL/min BUN/Creatinine Ratio 17.7 10.0-20.0 Serum Glucose 74 74-106 mg/dL Calcium Level 8.4 L 8.7-10.4 mg/dL Total Bilirubin 20.0 H 0.2-1.0 mg/dL Aspartate Amino Transferase (AST) 178 H 13-40 U/L Alanine Aminotransferase (ALT) 90 H 7-40 U/L Alkaline Phosphatase 121 H 46-116 U/L Total Protein 5.5 L 5.7-8.2 g/dL Albumin 2.6 L 3.2-4.8 g/dL Lactic Acid Level 3.7 *H 0.4-2.0 mmol/L Test 06/28/24 02:25 06/28/24 01:20 Range/Units Troponin I High Sensitivity 11 </=54 ng/L Eosinophils (%) (Auto) 4.9 0.0-7.0 % Eosinophils # (Auto) 0.1 0-0.8 10 ^3/uL Basophils # (Auto) 0 0-0.2 10 ^3/uL Large Platelets Few B-Type Natriuretic Peptide 50.82 0-100 pg/mL Lipase 80 H 12-53 U/L Assessment Impression: Acute hypoxic respiratory failure On mechanical ventilator Shock Liver cirrhosis Anemia Elevated lactic acid Pulmonary edema Abnormal liver function tests Pancytopenia Electrical imbalances Acute on chronic kidney injury Hepatorenal syndrome Morbid obesity with a BMI 53.8 Plan: s/p intubation on mechanical ventilator CXR image and report reviewed. Diffuse interstitial opacities. Right pleural effusion. Devices in place. ABG reviewed. Severe acidemia due to CO2 retention and metabolic acidosis. Initially was on respiratory rate of 16, tidal volume 500, peep of five, FiO2 at 100%. Increase respiratory rate to 28 breaths per minute. Increase tidal volume of 600 mL. Repeat ABG ordered for 1 hour after changes. Titrate FIO2 to keep O2 saturation above 92%. VAP bundle Daily ABG and CXR while intubated. Sedate for ventilatory synchrony On pressors for hemodynamic support. On multiple pressors. Levophed at 30 micrograms/minute purulent on vasopressin at 0.03 units/minute. Start phenylephrine and epinephrine to maintain systolic blood pressure above 90 mmHg. Titrate to keep MAP above 65 mmHg/SBP above 90 mmHg. Continue antibiotics. F/u cultures. Monitor renal function due to Acute kidney injury. Monitor electrolytes. Supplement as necessary. Monitor ins and outs Start bicarbonate drip for severe acidosis Obtain consent for paracentesis Obtain consent for right thoracentesis Obtain consent for right radial arterial line Obesity complicates all care. Nutritional support. Accucheks, ISS. GI/DVT prophylaxis. Condition: Critical Prognosis: Poor given multiple comorbidities. Rest of plan per hospitalist and other consultants. A total of 91 minutes of critical care time was spent reviewing the patient record, examining the patient, making a diagnostic and therapeutic plan, discussing this plan with the medical personnel, following up on diagnostic studies and following the patient for clinical stability excluding any and all procedures. At least 50% of this time was spent in direct, [id number] contact. Thank you Dr Winter Fontana for allowing me to participate in this patient's care. Further recommendations will depend on patient's clinical course. Please do not hesitate to contact me if you have any questions or concerns. This medical document was created using an electronic medical record system with [employer] system. Although this document has been carefully reviewed, there may still be some phonetic and typographical errors. These areas are purely typographical due to imperfections of the software programs, and do not reflect any compromise in the patient's medical care. Plan discussed with: Other (LÓPEZ Moffett, RT, ) KURTIS ALEMAN MD Jun 28, 2024 18:02
[2024-06-28 18:25] LABS: Base Excess -18.5 mmol/L (-2.0-3.0)
[2024-06-28] MEDS: EPINEPHrine HCL 250 ML IV SCH (18:50)
[2024-06-28] MEDS: SODIUM BICARB 50mEq/50ml Vial 150 ML in D5W 5% 1,000 ML IV SCH (19:07)
[2024-06-28] MEDS: PHENYLEPHRINE INJ 80 MG in SODIUM CHL 0.9% 242 ML IV SCH (19:31)
[2024-06-28 21:08] LABS: Base Excess -23.5 mmol/L (-2.0-3.0)
[2024-06-28] MEDS: DOPamine 1600MCG/ML D5W 250 ML IV ONE (21:08)
[2024-06-28] MEDS: DOPamine 1600MCG/ML D5W 250 ML IV SCH (21:44)
[2024-06-28 23:36] LABS: Base Excess -19.4 mmol/L (-2.0-3.0)
[2024-06-29] VITALS (61 sets, daily range): BP systolic 0–100; BP diastolic -7–74; PULSE 30–141; RESP 0–95; TEMP 96.1–98.1; O2SAT 25–100
[2024-06-29] MEDS ORDERED: SODIUM BICARB 8.4% 50Meq/50ml SYR Vial IV ONE (00:15)
[2024-06-29] MEDS: SODIUM BICARB 8.4% 50Meq/50ml SYR Vial IV ONE ×3 (00:58→02:46)
[2024-06-29] MEDS: LACTULOSE 20Gm/30ML SOLN NG SCH (00:58)
[2024-06-29] MEDS ORDERED: VANCOMYCIN PER PHARMACY 0 MG IV SCH (01:15)
[2024-06-29] MEDS: cefTRIAXone 1GM/50ML D5W 50 ML IV ONE ×2 (01:32→01:33)
[2024-06-29] MEDS: FAMOTIDINE (10MG/ML) 2ML VL IV SCH (01:35)
[2024-06-29] MEDS: methylPREDNISolone SOD SUCC 125 MG/2 ML VL IV ONE (01:35)
[2024-06-29] MEDS: VANCOMYCIN 1GM/250ML KIT 250 ML IV SCH (02:05)
--- NOTE | 2024-06-29 02:31 | DVHNC2 ---
Other Procedure Procedure Left sided Femoral Arterial Line Indication Monitoring of blood pressure Prep chlorhexidine Notes Date and Time : 06/28/24 11:45 pm Procedure summary: A time-out was performed. My hands were washed immediately prior to the procedure. I wore surgical cap, mask with protective eyewear, sterile gown and sterile gloves throughout the procedure. The Left groin was prepped using chlorhexidine scrub and draped in sterile fashion using sterile towels. The femoral pulse was identified with the use of ultrasound. Anesthesia was achieved using 1% lidocaine. Syringe Needle was inserted into the radial artery using ultrasound guidance. Arterial blood flow was seen to pulsate in the flash chamber . Syringe was disconnected from the needle guidewire was advanced easily into the radial artery. Needle was then removed with holding guidewire in place. The catheter was then advanced over the wire and wire were withdrawn. Catheter was connected to the monitor. The catheter was sutured into place with 1 suture s. A sterile Biopatch and Tegaderm was placed over the catheter at the insertion site. At the time of procedure completion, the catheter was connected to the grass farm laborer and calibrated. Appropriate waveform and blood pressure tracing was observed. Estimated blood loss is less than 5 mL. CPT: 69849 Arterial line insertion CPT: 54564 add-on John Conway Resident Estelle Crawford MD Date of Service: Jun 28, 2024 Billing Provider: ESTELLE CRAWFORD MD Common Visit Codes: PROCEDURE ONLY Procedure Codes: 30278-[id number] LINE JOHN CONWAY Jun 29, 2024 02:31
[2024-06-29] MEDS: EPINEPHrine HCL 250 ML IV SCH (03:00)
[2024-06-29] MEDS: NOREPINEPHRINE BITARTRATE 32 MG in SODIUM CHL 0.9% 218 ML IV SCH (03:00)
[2024-06-29] MEDS: SODIUM BICARB 8.4% 50Meq/50ml SYR INJ ONE ×3 (03:22→04:28)
[2024-06-29] MEDS: ATROPINE SULF 1 MG/10ml SYR ONE (04:00)
[2024-06-29] MEDS: ATROPINE SULF 1 MG/10ml SYR IV PRN (04:15)
[2024-06-29] MEDS: SODIUM BICARB 8.4% 50Meq/50ml SYR Vial IV SCH (04:27)
[2024-06-29 04:55] LABS: Base Excess -26.4 mmol/L (-2.0-3.0)
[2024-06-29 05:14] LABS: Basophils # (auto) 0 10 ^3/uL (0-0.2); Basophils % (auto) 0.4 % (0.0-2.0); Eosinophils # (auto) 0.1 10 ^3/uL (0-0.8); Lymphocytes # (auto) 0.4 10 ^3/uL (0.4-5.4); Mean Corpuscular Volume 117.4 fL (80.0-100.0); Monocytes # (auto) 0.1 10 ^3/uL (0-1.3); Neutrophils # (auto) 2.5 10 ^3/uL (1.6-8.6)
[2024-06-29 05:16] LABS: Eosinophils % (auto) 3.3 % (0.0-7.0); Hematocrit 21.1 % (41.0-53.0); Mean Corpuscular Hemoglobin 39.3 pg (28.0-32.0); Mean Corpuscular Hgb Conc. 33.5 g/dL (32.0-36.0); Monocytes % (auto) 2.5 % (0.0-12.0); Neutrophils % (auto) 81.8 % (37.0-80.0); Red Blood Cells 1.79 10^6/uL (4.5-5.90); Red Cell Distribution Width 17.6 % (11.8-14.3)
[2024-06-29 05:29] LABS: Anion Gap 24 (5-15); BUN/Creatinine Ratio 12.7 (10.0-20.0); Carbon Dioxide 21 mmol/L (20-31); Chloride 99 mmol/L (98-107); Sodium 144 mmol/L (136-145)
[2024-06-29 05:30] LABS: Blood Urea Nitrogen 40 mg/dL (9-23); Glucose 69 mg/dL (74-106)
[2024-06-29 05:31] LABS: Alanine Aminotransferase 200 U/L (7-40); Albumin 1.9 g/dL (3.2-4.8); Alkaline Phosphatase 124 U/L (46-116); Aspartate Aminotransferase 767 U/L (13-40); Bilirubin, Total 9.9 mg/dL (0.2-1.0); Calcium 7.2 mg/dL (8.7-10.4); Nucleated Red Blood Cells % 29.9 %; Total Protein 3.4 g/dL (5.7-8.2)
[2024-06-29 05:32] LABS: Potassium 6.8 mmol/L (3.5-5.1)
[2024-06-29] MEDS ORDERED: SODIUM ZIRCONIUM CYCL 10 GM PAK PO ONE (05:45)
[2024-06-29] MEDS: ALBUTEROL SULF 2.5 MG/0.5ML(0.5%) NEB SOLN NEB ONE (05:45)
[2024-06-29] MEDS ORDERED: CALCIUM GLUC 1,000mg/50ml-NS 50 ML IV ONE (05:45)
[2024-06-29 06:25] LABS: Platelet Count (auto) 35 10^3/uL (140-450)
[2024-06-29 06:26] LABS: Large Platelets FEW; Macrocytosis Moderate; Platelet Estimate Decrea
[2024-06-29 06:33] LABS: Base Excess -22.1 mmol/L (-2.0-3.0)
[2024-06-29] MEDS ORDERED: InsuLIN REG 1unit/0.01ml Soln (100units/ml) IV ONE (07:15)
[2024-06-29] MEDS: DEXTROSE (50%) 50ML SYRG IV ONE (07:20)
--- NOTE | 2024-06-29 07:41 | RESUS ---
CODE BLUE ASSESSSMENT History of Events History of Events: ADMITTED TO ICU 06/28 FOR HYPOTENSION, SEE CHART FOR HISTORY AND TREATMENT PLAN DURING HOSPITALIZATION. Initial Information Date: Jun 29, 2024 Time: 06:56 Location of Arrest: ICU ([facility]) Arrest Witnessed: Yes CPR started initial time: 06:56 CPR started by whom: Hospital Staff Type of arrest: Cardiac, Adult, Witnessed Spontaneous Respirations: No Pulse Present: No Monitoring: ECG, Pulse Oximetry Airway Ventilation Breathing at Onset: Assisted Oxygen Delivery Method: Ambu-Bag Artificial Ventilation: Bag/Endo tube Comments: PREVIOUSLY INTUBATED-SEE CHART Circulation Circulation #1: Time: 06:56 Pulse Rate (adult): 0 Blood Pressure Systolic: 0 Blood Pressure Diastolic: 0 Temperature (Fahrenheit): 96 Circulation Comment: ASYSTOLE, TEMP RECTAL Circulation #2: Time: 06:58 Pulse Rate (adult): 0 Blood Pressure Systolic: 0 Blood Pressure Diastolic: 0 Circulation Comment: ASYSTOLE Circulation #3: Time: 07:00 Pulse Rate (adult): 0 Blood Pressure Systolic: 0 Blood Pressure Diastolic: 0 Circulation Comment: ASYSTOLE Circulation #4: Time: 07:02 Pulse Rate (adult): 0 Blood Pressure Systolic: 0 Blood Pressure Diastolic: 0 Circulation Comment: ASYSTOLE Circulation #5: Time: 07:04 Pulse Rate (adult): 0 Blood Pressure Systolic: 0 Blood Pressure Diastolic: 0 Circulation Comment: ASYSTOLE Circulation #6: Time: 07:06 Pulse Rate (adult): 0 Blood Pressure Systolic: 0 Blood Pressure Diastolic: 0 Circulation Comment: ASYSTOLE Circulation #7: Time: 07:08 Circulation Comment: ROSC HR 40-BRADYCARDIA Circulation #8: Time: 07:39 Pulse Rate (adult): 0 Blood Pressure Systolic: 0 Blood Pressure Diastolic: 0 Circulation Comment: SECOND CODE BLUE CALLED, LOST PULSES Circulation #9: Time: 07:41 Pulse Rate (adult): 0 Blood Pressure Systolic: 0 Blood Pressure Diastolic: 0 Circulation Comment: ASYSTOLE Circulation #10: Time: 07:43 Pulse Rate (adult): 0 Blood Pressure Systolic: 0 Blood Pressure Diastolic: 0 Circulation Comment: ASYSTOLE Circulation #11: Time: 07:45 Pulse Rate (adult): 0 Blood Pressure Systolic: 0 Blood Pressure Diastolic: 0 Circulation Comment: ASYSTOLE Circulation #12: Time: 07:47 Pulse Rate (adult): 0 Blood Pressure Systolic: 0 Blood Pressure Diastolic: 0 Circulation Comment: ASYSTOLE TIME OF CALLED BY DR ZARAGOZA Defibrillation Defbrillation : Time Defibrillator Applied: 06:56 Compressions: Manual Medications & Response Medications and Responses #1: Medication Time: 06:57 ADULT Medications Given ADULT: Epinephrine 1 mg Route of Administration: IV Medications and Responses #2: Medication Time: 07:00 ADULT Medications Given ADULT: Epinephrine 1 mg, Calcium Chloride 10 mL Route of Administration: IV Medications and Responses #3: Medication Time: 07:04 ADULT Medications Given ADULT: Epinephrine 1 mg Route of Administration: IV Medications and Responses #4: Medication Time: 07:08 ADULT Medications Given ADULT: Atropine 1 mg, Sodium Bacarbinate 50 meq Route of Administration: IV Medications and Responses #5: Medication Time: 07:41 ADULT Medications Given ADULT: Epinephrine 1 mg, Sodium Bacarbinate 50 meq Route of Administration: IV Medications and Responses #6: Medication Time: 07:43 ADULT Medications Given ADULT: Calcium Chloride 10 mL Route of Administration: IV Medications and Responses #7: Medication Time: 07:44 ADULT Medications Given ADULT: Epinephrine 1 mg Route of Administration: IV Medications and Responses #8: Medication Time: 07:45 ADULT Medications Given ADULT: Sodium Bacarbinate 50 meq Route of Administration: IV Nurses Notes Juanjose Coma Scale Eye Opening: None (1) [place] Coma Scale Verbal: None (1) [place] Coma Scale Motor: None (1) Pupil Reaction: Non Reactive Bedside Blood Glucose: 77 Time Code Ended Time Code Ended: 07:47 Post Arrest Status: Outcome of code: Unsuccessful Patient pronounced by: DR ZARAGOZA Time patient pronounced: 07:47 Family notified: No Attending called: Yes Code Team Present: DR ZARAGOZA, DR MELGOZA RESIDENT, JOSHUA RN HOUSE SUP (FOR FIRST CODE), EUGENIO RN HOUSE SUP (BOTH CODES), WAGNER RN, MARA RN, EBENEZER RN, MILTON PALENCIA RN, LORENE RT, CHARLES CCT, Eugenio Reyes RN Jun 29, 2024 07:40
[2024-06-29] MEDS ORDERED: methylPREDNISolone SOD SUCC 125 MG/2 ML VL IV SCH (08:00)
[2024-06-29] MEDS ORDERED: EPINEPHrine HCL 1 MG/10 ML SYRG IV ONE (12:59)
--- NOTE | 2024-06-29 13:14 | DVHDS2 ---
Summary Date of Admission Jun 28, 2024 at 04:43 Date and Time of Expiration: Jun 29, 2024 07:47 Reason for Admission: Chest pain and acute hypotension Wounds: None Labs/Diagnostic Data: Laboratory Results Test 06/29/24 07:15 06/29/24 06:05 06/29/24 04:45 06/29/24 03:19 POC Glucose 39 mg/dl (70-106) Blood Gas Specimen Type Arterial Blood Gas Sample Site Arterial line Blood Gas Patient Temperature 37.0 Arterial Blood Date Drawn [id number] Arterial Blood pH 6.949 (7.350-7.450) Arterial Blood Partial Pressure CO2 36.5 mmHg (35.0-48.0) Arterial Blood Partial Pressure O2 105.4 mmHg (83.0-108.0) Arterial Blood HCO3 7.8 mmol/L (21.0-28.0) Arterial Blood Oxygen Saturation 94.8 % (94.0-98.0) Arterial Blood Base Excess -22.1 mmol/L (-2.0-3.0) Arterial Blood Oxyhemoglobin 92.4 % (94.0-98.0) Arterial Blood Carboxyhemoglobin 2.2 % (0.5-1.5) Arterial Blood Methemoglobin 0.3 % (0.0-1.5) Arnold Test N/a Blood Gas Total Hemoglobin 5.50 g/dL (13.5-17.5) Blood Gas Set Respiration Rate 30.0 Blood Gas Modality Vent - ac Blood Gas Spontaneous Rate 30 FiO2 % 100.0 Blood Gas Tidal Volume 650.0 Blood Gas Inspiratory Pressure 32.0 Blood Gas PEEP or CPAP 10.0 Bl Gas Inspiratory/Expiratory Ratio 1:1.1 Specimen Drawn By mir baum Blood Gas Critical Value Read Back yes Blood Gas Notified Whom eliza hansen Blood Gas Notified Time [id number] Blood Gas Notified By mir baum White Blood Count 3.0 10^3/uL (4.4-10.8) Red Blood Count 1.79 10^6/uL (4.5-5.90) Hemoglobin 7.0 g/dL (13.5-17.5) Hematocrit 21.1 % (41.0-53.0) Mean Corpuscular Volume 117.4 fL (80.0-100.0) Mean Corpuscular Hemoglobin 39.3 pg (28.0-32.0) Mean Corpuscular Hemoglobin Concent 33.5 g/dL (32.0-36.0) Red Cell Distribution Width 17.6 % (11.8-14.3) Platelet Count 35 10^3/uL (140-450) Mean Platelet Volume 7.2 fL (6.9-10.8) Neutrophils (%) (Auto) 81.8 % (37.0-80.0) Lymphocytes (%) (Auto) 12.0 % (10.0-50.0) Monocytes (%) (Auto) 2.5 % (0.0-12.0) Eosinophils (%) (Auto) 3.3 % (0.0-7.0) Basophils (%) (Auto) 0.4 % (0.0-2.0) Neutrophils # (Auto) 2.5 10 ^3/uL (1.6-8.6) Lymphocytes # (Auto) 0.4 10 ^3/uL (0.4-5.4) Monocytes # (Auto) 0.1 10 ^3/uL (0-1.3) Eosinophils # (Auto) 0.1 10 ^3/uL (0-0.8) Basophils # (Auto) 0 10 ^3/uL (0-0.2) Nucleated Red Blood Cells 29.9 % Platelet Estimate Decrea Large Platelets Few Macrocytosis Moderate Sodium Level 144 mmol/L (136-145) Potassium Level 6.8 mmol/L (3.5-5.1) Chloride Level 99 mmol/L (98-107) Carbon Dioxide Level 21 mmol/L (20-31) Anion Gap 24 (5-15) Blood Urea Nitrogen 40 mg/dL (9-23) Creatinine 3.14 mg/dL (0.700-1.30) Glomerular Filtration Rate Calc 23 mL/min (>90) BUN/Creatinine Ratio 12.7 (10.0-20.0) Serum Glucose 69 mg/dL (74-106) Calcium Level 7.2 mg/dL (8.7-10.4) Total Bilirubin 9.9 mg/dL (0.2-1.0) Aspartate Amino Transferase (AST) 767 U/L (13-40) Alanine Aminotransferase (ALT) 200 U/L (7-40) Alkaline Phosphatase 124 U/L (46-116) Total Protein 3.4 g/dL (5.7-8.2) Albumin 1.9 g/dL (3.2-4.8) Ammonia 1136 umol/L (11-32) Test 06/28/24 14:49 06/28/24 03:20 06/28/24 02:25 06/28/24 01:20 Differential Total Cells Counted 100.0 (100) Neutrophils % (Manual) 66 (37.0-80.0) Band Neutrophils % (Manual) 2 Lymphocytes % (Manual) 28 (10.0-50.0) Monocytes % (Manual) 4 (0-12) Eosinophils % (Manual) 0 (0-7) Basophils % (Manual) 0 (0.0-2.0) Metamyelocytes % (manual) 0 Myelocytes % (Manual) 0 Promyelocytes % (Manual) 0 Blast Cells % (Manual) 0 Reactive Lymphocytes 0 Prothrombin Time 22.3 sec (9.3-11.8) Prothrombin Time INR 2.23 (0.9-1.15) Plasma/Serum Blood Alcohol 5.2 mg/dL (<10) Lactic Acid Level 3.7 mmol/L (0.4-2.0) Troponin I High Sensitivity 11 ng/L (</=54) B-Type Natriuretic Peptide 50.82 pg/mL (0-100) Lipase 80 U/L (12-53) Other Laboratory Tests 06/29/24 04:45 Brief Hx & Hospital Course: 54-year-old male morbidly obese with a BMI of 54 history of hypothyroidism alcoholic cirrhosis with jaundice ascites came in complaining of chest pain and shortness of breath. Patient was very lethargic hypoxic with altered mental status and immediately intubated by Dr. Jimenez in the emergency room bed 6 with the help of the resident. . Patient was subsequently moved to the intensive care unit troponin negative x3. Bilirubin very high 16.8 patient had ascites Radiology consult placed for paracentesis patient was placed on spironolactone for alcoholic cirrhosis Synthroid for hypothyroidism ejection fraction 55 percent patient was placed on pressors for hypotension his condition rapidly deteriorated and he at 7:47 a.m. on 06/29/2024 Cause of cardiopulmonary respiratory failure Chronic alcoholic cirrhosis Severe jaundice Liver failure Morbid obesity BMI of 54 Consults/Reason for consult Cardiology Pulmonology Dr. Arredondo Operations or Procedures Arterial line Endotracheal intubation Final Diagnosis/Problems List Chest pain and shortness of breath rule out coronary etiology cardiology consult by Dr. Laird appreciated, echo 55 percent ejection fraction Acute volume depletion secondary to alcoholic liver cirrhosis: Continue pressure support with Levophed and albumin Lasix Anemia/thrombocytopenia secondary to above Rule out structural heart disease echo 55 percent ejection fraction Chronic current alcohol abuse: Counseling Alcoholic cirrhosis: Spironolactone Hypothyroidism: Synthroid Acute kidney injury Jaundice with bilirubin 16.[address] Cordova Morbid obesity Ascites: Radiology consult for paracentesis Patient Left AMA during last visit 06/21/2024 Discharge Disposition: at Hospital 39 (Time taken for discharge summary 39 minutes) RUPESH HORNE MD Jun 29, 2024 13:14
[2024-06-29] MEDS ORDERED: CALCIUM CHL(10%) 100MG/ML 10ML VIAL IV ONE (13:19)
--- NOTE | 2024-06-29 16:17 | RESUS ---
ERIC YOUNG ASSESSSMENT History of Events History of Events: I was called up from the emergency room for eric young in ICU [facility]. Code was called at 6:56 a.m. when patient was found to be in asystole. Upon my arrival patient was already intubated and being ventilated mechanically by respiratory therapist. CPR had already been started. Patient had already been given 2 rounds of epinephrine IV and continue to remain in asystole. I immediately took over care and managed the code. CPR was continuous , pulse checks were done every 2 minutes. Patient continued to remain in his asystole. Nursing staff informed me that he has a potassium of 6.7. I was concerned about possible hyperkalemia. Patient was given total of calcium chloride 2 g IV at that time. CPR was again continued. Patient was given additional epinephrine with a total of 4 mg epinephrine IV given during the total of the code. Ultimately Rosc was achieved at 7:06am. Patient did have an A-line and a good blood pressure of 92/54 systolic. Given his hyperkalemia, additional treatment included albuterol 20 mg med nebs, and additionally insulin 10 mg IV followed by 1 amp of glucose. Patient was critical but stable upon leaving the ICU. Nursing staff was informed to call attending on-call caring for the patient. Patient did not have family present and did not have any family for me to call. Initial Information Date: Jun 29, 2024 Time: 06:56 Location of Arrest: ICU ([facility]) Arrest Witnessed: Yes CPR started initial time: 06:56 CPR started by whom: Hospital Staff Type of arrest: Cardiac Spontaneous Respirations: No Pulse Present: No Monitoring: Pulse Oximetry, Telemetry Crash Cart Opened and Supplies: Yes Airway Ventilation Breathing at Onset: Apneic Comments: Patient already intubated Medications & Response Medications and Responses : Comment Total of epinephrine 1 mg IV x4, calcium chloride 2 g IV x2, atropine 1 mg IV x1 , 10 mg IV insulin, 1 amp D50 glucose IV given Nurses Notes Juanjose Coma Scale Eye Opening: None (1) Juanjose Coma Scale Verbal: None (1) Juanjose Coma Scale Motor: None (1) Pupil Reaction: Non Reactive Bedside Blood Glucose: 77 Time Code Ended Time Code Ended: 07:06 Post Arrest Status: Unconscious Outcome of code: Successful Family notified: No ROSC Time of ROSC: 07:06 Pt Meets Criteria for Therapeu: No Therapeutic Hyperthermia Start: No JEREMÍAS ZARAGOZAHA M MD Jun 29, 2024 16:17
--- NOTE | 2024-06-29 16:22 | RESUS ---
CODE DEVON ASSESSSMENT History of Events History of Events: I was called up from the emergency room for second code blue in [facility] for the same patient. Code was called at 7:39 a.m. when patient was found to be in asystole. Upon my arrival patient was already intubated and being ventilated mechanically by respiratory therapist. CPR had already been started. Patient had already been given 1 rounds of epinephrine IV and continue to remain in asystole. I immediately took over care and managed the code. CPR was continuous , pulse checks were done every 2 minutes. Patient continued to remain in his asystole. Patient was given 2 amps bicarb, 2 g calcium chloride and an additional epinephrine with a total of 2 mg epinephrine IV given during the total of the code. Ultimately the patient continued to remain in asystole. Time of was called at 7:47am. Nursing staff was informed to inform attending on-call caring for the patient. Patient did not have family present and did not have any family for me to call. Nurses Notes Juanjose Coma Scale Eye Opening: None (1) Juanjose Coma Scale Verbal: None (1) [place] Coma Scale Motor: None (1) Pupil Reaction: Non Reactive Bedside Blood Glucose: 77 LISSETH ZARAGOZA MD Jun 29, 2024 16:22
--- NOTE | 2024-06-29 22:43 | DVHPN2 ---
Progress Note - Dictate Date Seen: Jun 29, 2024 Medical Necessity Reason Pt with a Central, PICC or Fol: Yes The following are medically ne: Jaquez Catheter Reason for jaquez catheter: Strict I&O Subjective Patient seen and examined at bedside. Sedated, intubated on mechanical ventilator. Overnight events reviewed. vital signs Vital Sign Date Time Temp Pulse Resp B/P (MAP) Pulse Ox O2 Delivery O2 Flow Rate FiO2 06/29/24 08:53 0 06/29/24 07:46 96.1 0/0 (0) 205.0 06/29/24 07:45 100 06/29/24 07:42 18 06/29/24 07:41 Ambu-Bag 06/29/24 06:00 100 100 06/28/24 07:35 0 Total Intake and Output 06/28/24 06/28/24 06/29/24 15:00 23:00 07:00 Intake Total 340 ml 1281.128 ml 5267.502 ml Output Total 10 ml 5 ml 20 ml Balance 330 ml 1276.128 ml 5247.502 ml objective Gen.: Patient lying in bed in medical ICU. Sedated, intubated on mechanical ventilator. Head: Normocephalic, atraumatic. Eyes: PERRLA. Ears: Normal external anatomy. Throat: Endotracheal tube and orogastric tube in place. Neck: Supple, trachea midline. Chest: Transmitted breath sounds bilaterally. Decreased air entry bilaterally. No wheezing. Bibasilar crackles. Cardiovascular: Positive S1, positive S2. Regular rate and rhythm. Abdomen: Positive bowel sounds in all 4 quadrants. Soft, nontender, nondistended. : Jaquez in place. Normal external genitalia. Rectal: Deferred. Skin: Warm, dry. Intact. Extremities: 2+ radial pulses bilaterally. No lower extremity edema. Neuro: Sedated. laboratory and microbiology Laboratory Tests 06/29/24 04:45 Test 06/29/24 04:45 Range/Units Serum Glucose 69 L 74-106 mg/dL Assessment/Plan Impression: Acute hypoxic respiratory failure On mechanical ventilator Shock Liver cirrhosis Anemia Elevated lactic acid Pulmonary edema Abnormal liver function tests Pancytopenia Electrical imbalances Acute on chronic kidney injury Hepatorenal syndrome Morbid obesity with a BMI 53.8 Events: Remains on vent support Multiple vent changes done. On multiple pressors for hemodynamic support. Titrate to keep MAP above 65 mmHg/SBP above 90 mmHg. ABG notable for acidemia. Bicarb drip. Severe metabolic acidosis. Continue antibiotics High likelihood of mortality. Poor prognosis. Labs and imaging reviewed. Rest of plan as noted below. Plan: s/p intubation on mechanical ventilator CXR image and report reviewed. Diffuse interstitial opacities. Right pleural effusion. Devices in place. ABG reviewed. Severe acidemia due to CO2 retention and metabolic acidosis. Vent settings; respiratory rate of 30, tidal volume 650, PEEP of 10, FiO2 at 100%. Titrate FIO2 to keep O2 saturation above 92%. VAP bundle Daily ABG and CXR while intubated. Sedate for ventilatory synchrony On multiple pressors for hemodynamic support. Titrate to keep MAP above 65 mmHg/SBP above 90 mmHg. Continue antibiotics. F/u cultures. Monitor renal function due to Acute kidney injury. Monitor electrolytes. Supplement as necessary. Monitor ins and outs Start bicarbonate drip for severe acidosis Obtain consent for paracentesis Obtain consent for right thoracentesis Obtain consent for right radial arterial line Obesity complicates all care. Nutritional support. Accucheks, ISS. GI/DVT prophylaxis. Condition: Critical Prognosis: Poor given multiple comorbidities. Rest of plan per hospitalist and other consultants. A total of 35 minutes of critical care time was spent reviewing the patient record, examining the patient, making a diagnostic and therapeutic plan, discussing this plan with the medical personnel, following up on diagnostic studies and following the patient for clinical stability excluding any and all procedures. At least 50% of this time was spent in direct, [id number] contact. Thank you Dr Winter Fontana for allowing me to participate in this patient's care. Further recommendations will depend on patient's clinical course. Please do not hesitate to contact me if you have any questions or concerns. This medical document was created using an electronic medical record system with [employer] system. Although this document has been carefully reviewed, there may still be some phonetic and typographical errors. These areas are purely typographical due to imperfections of the software programs, and do not reflect any compromise in the patient's medical care. Plan discussed with: Other (LÓPEZ Phillips) Critical Care Time(min): 35 KURTIS ALEMAN MD Jun 29, 2024 22:43
[2024-06-30] MEDS ORDERED: cefTRIAXone 1GM/50ML D5W 50 ML IV SCH (09:00)
== END 2024-06-29 14:35 | DRG 133 ==
LOC: EDBD 00:58 → ER 00:58 → TELE 04:43 → ICU WEST 18:27
PROVIDERS: ADMIT Nurse Practitioner Family; ATTEND Family Medicine
PROC: 02H633Z Insertion of Infusion Device into Right Atrium, Percutaneous Approach (ICD-10-PCS; principal; 2024-06-28)
PROC: 5A1935Z Respiratory Ventilation, Less than 24 Consecutive Hours (ICD-10-PCS; 2024-06-28)
PROC: B548ZZA Ultrasonography of Superior Vena Cava, Guidance (ICD-10-PCS; 2024-06-28)
PROC: 02HV33Z Insertion of Infusion Device into Superior Vena Cava, Percutaneous Approach (ICD-10-PCS; 2024-06-28)
PROC: 5A09357 Assistance with Respiratory Ventilation, Less than 24 Consecutive Hours, Continuous Positive Airway Pressure (ICD-10-PCS; 2024-06-28)
PROC: 0BH17EZ Insertion of Endotracheal Airway into Trachea, Via Natural or Artificial Opening (ICD-10-PCS; 2024-06-28)
PROC: 04HY32Z Insertion of Monitoring Device into Lower Artery, Percutaneous Approach (ICD-10-PCS; 2024-06-29)
PROC: 5A12012 Performance of Cardiac Output, Single, Manual (ICD-10-PCS; 2024-06-29)
PROC: 5A2204Z Restoration of Cardiac Rhythm, Single (ICD-10-PCS; 2024-06-29)
DX: J96.01 Acute respiratory failure with hypoxia (principal); K76.7 Hepatorenal syndrome; I46.9 Cardiac arrest, cause unspecified; G92.8 Other toxic encephalopathy; D61.818 Other pancytopenia; I13.0 Hypertensive heart and chronic kidney disease with heart failure and stage 1 through stage 4 chronic kidney disease, or unspecified chronic kidney disease; I95.9 Hypotension, unspecified; E87.20 Acidosis, unspecified; K72.90 Hepatic failure, unspecified without coma; I50.9 Heart failure, unspecified; N17.9 Acute kidney failure, unspecified; K70.31 Alcoholic cirrhosis of liver with ascites; E83.51 Hypocalcemia; D63.8 Anemia in other chronic diseases classified elsewhere; E87.1 Hypo-osmolality and hyponatremia; S09.90XA Unspecified injury of head, initial encounter; Z68.43 Body mass index [BMI] 50.0-59.9, adult; D69.59 Other secondary thrombocytopenia; E86.9 Volume depletion, unspecified; N18.9 Chronic kidney disease, unspecified; W18.39XA Other fall on same level, initial encounter; E03.9 Hypothyroidism, unspecified; Z53.29 Procedure and treatment not carried out because of patient's decision for other reasons; F10.10 Alcohol abuse, uncomplicated; Y90.9 Presence of alcohol in blood, level not specified; R74.8 Abnormal levels of other serum enzymes; E66.01 Morbid (severe) obesity due to excess calories; Z79.899 Other long term (current) drug therapy; Z80.3 Family history of malignant neoplasm of breast; Z82.49 Family history of ischemic heart disease and other diseases of the circulatory system; Z71.41 Alcohol abuse counseling and surveillance of alcoholic; Y93.89 Activity, other specified; Y92.89 Other specified places as the place of occurrence of the external cause; Y99.8 Other external cause status
CPT/HCPCS: 36415; 36556; 36600; 70450; 71045; 76705; 80053; 80320; 82140; 82805; 82962; 83605; 83690; 83880; 84484; 85007; 85025; 85027; 85610; 86850; 86900; 86901; 86920; 87070; 87081; 87205; 92950; 93005; 93306; 94002; 94003; 94640; 94660; 96365; 96375; 99291; G0378; J0171; J3490; J7060; P9047